=== PATIENT | female | born 1990 | race Caucasian/White ===

== ENCOUNTER 2017-01-11 14:40 | Outpatient (CLI) | payer MEDICAID ==
[2017-01-11 15:15] LABS: APPEARANCE,URINE SLIGHTLY-CLOUDY; BILIRUBIN,URINE NEGATIVE (NEGATIVE); GLUCOSE, URINE NEGATIVE (NEGATIVE); KETONES,URINE NEGATIVE (NEGATIVE); LEUKOCYTE ESTERASE,URINE MODERATE (NEGATIVE); NITRITE,URINE NEGATIVE (NEGATIVE); PROTEIN,URINE NEGATIVE (NEGATIVE); UROBILINOGEN,URINE NEGATIVE mg/dL (<2.0)
[2017-01-11 15:33] LABS: URINE BARBITURATES SCREEN NEGATIVE; URINE METHADONE SCREEN NEGATIVE; URINE OPIATES LOW NEGATIVE; URINE PHENCYCLIDINE SCREEN NEGATIVE
[2017-01-11 15:43] LABS: ALANINE AMINOTRANSFERASE 14 U/L (9-52); ALBUMIN 3.5 g/dL (3.5-5.0); ALKALINE PHOSPHATASE 90 U/L (38-126); ANION GAP 14 (5-19); ASPARTATE AMINO TRANSFERASE 16 U/L (14-36); BILIRUBIN,TOTAL 0.4 mg/dL (0.2-1.3); BLOOD UREA NITROGEN 8 mg/dL (7-20); CALCIUM 10.1 mg/dL (8.4-10.2); CARBON DIOXIDE 17 mmol/L (22-30); CHLORIDE 107 mmol/L (98-107); CREATININE RESULT 0.68 mg/dL (0.52-1.25); GLUCOSE 116 mg/dL (75-110); LDH 316 U/L (313-618); POTASSIUM 3.9 mmol/L (3.6-5.0); TOTAL PROTEIN 6.2 g/dL (6.3-8.2); URIC ACID 6.8 mg/dL (2.5-6.2)
[2017-01-11 15:44] LABS: ABSOLUTE EOSINOPHILS # (AUTO) 0.2 10^3/uL (0.0-0.6); ABSOLUTE LYMPHOCYTES (AUTO) 2.4 10^3/uL (0.5-4.7); ABSOLUTE MONOCYTES (AUTO) 0.8 10^3/uL (0.1-1.4); ABSOLUTE NEUT (AUTO) 12.3 10^3/uL (1.7-8.2); BASOPHILS % (AUTO) 0.2 % (0-2); EOSINOPHILS % (AUTO) 1.2 % (0-6); HEMOGLOBIN 9.8 g/dL (12.0-15.5); HGB HCT DIFFERENCE 1.4; LYMPHOCYTES % (AUTO) 15.1 % (13-45); MEAN CORPUSCULAR VOLUME 94 fl (80-97); MONOCYTES % (AUTO) 5.3 % (3-13); RED BLOOD COUNT 2.97 10^6/uL (3.72-5.28); RED CELL DISTRIBUTION WIDTH 14.3 % (11.5-14.0); SEGMENTED NEUTROPHILS % (AUTO) 78.2 % (42-78); WHITE BLOOD COUNT 15.7 10^3/uL (4.0-10.5)
--- NOTE | 2017-01-11 15:58 | Non Stress Test Report ---
Non Stress Test Datetime Report Generated by CPN: 01/11/2017 15:58 DEMOGRAPHIC EGA NST: 36.6 INDICATION Indication for Study: Gestational Hypertension MONITORING Monitor Explained: Monitor Explained; Test Explained; Patient Verbalized Understanding Time on Monitor: 01/11/2017 15:01 Time off Monitor: 01/11/2017 15:44 NST Duration: 43 NST INTERVENTIONS NST Interventions: PO Hydration; Reposition Patient Physician Notified NST: Dr. Arevalo BABY A: [id number] BABY A Movement : Present Contraction Frequency : 0 FHR Baseline : 140 Accelerations : 15X15 Decelerations : None Variability : Moderate 6-25bpm NST Review: Meets Criteria for Reactive NST NST Review and Verified By : Magaly Ardon RN NST Results: Reactive NST REPORT Report Trigger: Send Report
--- NOTE | 2017-01-11 16:00 | L&D Flow Sheet ---
LD Flowsheet Datetime Report Generated by CPN: 01/11/2017 16:00 Datetime: 01/11/2017 15:53 Provider Reviewed Strip: Yes (Sujatha Camp, RNC) Communication: Provider at Bedside (Sujatha Camp, RNC) Communication Comments: Dr Arevalo at bedside (Sujatha Camp, RNC) Datetime: 01/11/2017 15:45 Patient Care Comments: EFM off reactive NST noted (Sujatha Camp, RNC) Datetime: 01/11/2017 15:42 NBP Sys/Brenna/Mean (mmHg): 104 (QS system process) : 64 (QS system process) : 80 (QS system process) Pulse: 109 (QS system process) LaborFlag: Labor (QS system process) Datetime: 01/11/2017 15:27 NBP Sys/Brenna/Mean (mmHg): 110 (QS system process) : 67 (QS system process) : 83 (QS system process) Pulse: 116 (QS system process) LaborFlag: Labor (QS system process) Datetime: 01/11/2017 15:24 Pulse: 117 (QS system process) SpO2 (%): 96 (QS system process) LaborFlag: Labor (QS system process) Datetime: 01/11/2017 15:19 Pulse: 114 (QS system process) SpO2 (%): 97 (QS system process) LaborFlag: Labor (QS system process) Datetime: 01/11/2017 15:14 Pulse: 121 (QS system process) SpO2 (%): 96 (QS system process) Resting Tone (Palpate): Relaxed (Sujatha Camp, RNC) Pain Scale: 0 (Sujatha Camp, RNC) Pain Presence: None/Denies (Sujatha Camp, RNC) Pain Type: N/A (Sujatha Camp, RNC) Pain Assessment Comments: denies pain on arrival (Sujatha Camp, RNC) Membrane Status: Intact (Sujatha Camp, RNC) Vaginal Bleeding: None (Sujatha Camp, RNC) Level of Consciousness: Fully Conscious (Sujatha Camp, RNC) DTR's/Clonus: DTRs 2+; No Clonus (Sujatha Camp, RNC) Headache: Denies (Annotations: h/o frequent headaches throughout , c/o headache earlier today resolved without intervention) (Sujatha Ryan, RNC) Breath Sounds, Left: Clear and Equal (Sujatha Camp, RNC) Breath Sounds, Right: Clear and Equal (Sujatha Camp, RNC) Nausea/Vomiting: Hx of Nausea/Vomiting (Annotations: c/o nausea today, frequent nausea throughout ) (Sujatha Ryan, RNC) RUQ Epigastric Pain: Denies (Sujatha Davis, RNC) LaborFlag: Labor (QS system process) Datetime: 01/11/2017 15:12 NBP Sys/Brenna/Mean (mmHg): 129 (QS system process) : 75 (QS system process) : 93 (QS system process) Pulse: 123 (QS system process) LaborFlag: Labor (QS system process) Datetime: 01/11/2017 15:03 Patient Care Comments: RN at bedside adjusting monitor (Sujatha Davis, RNC) Datetime: 01/11/2017 15:02 IV/Blood Work: Labs Drawn (Sujatha Camp, RNC) I/O Interventions: Ice Chips Given; Clear Liquids Given (Sujatha Camp, RNC) Datetime: 01/11/2017 15:00 Patient Position/Activity: HOB Lowered; Left Lateral (Sujatha Camp, RNC) Instructional Method: Demo; Verbal; Written; Patient Instructed (Sujatha Camp, RNC) Plan of Care: Plan of Care Discussed; Gestational Hypertension/Preeclampsia/Eclampsia (Sujatha Arlington, RNC) Unit Routine: [place] to Room; Call Erazo; Bed; Monitoring (Sujatha Camp, RNC) Teaching Comments: POC reviewed for preeclampsia evaluation, estimated time required (Sujatha Camp, RNC) Datetime: 01/11/2017 14:00 Stage of : Labor (MALU Trivedi)
== END 2017-01-11 16:06 | disposition home or self-care (01) ==
LOC: LC 14:40
PROVIDERS: ATTEND Obstetrics & Gynecology
PROC: 4A1HXCZ Monitoring of Products of Conception, Cardiac Rate, External Approach (ICD-10-PCS; principal; 2017-01-11)
DX: O26.893 Other specified pregnancy related conditions, third trimester (principal); R51 Headache; R11.2 Nausea with vomiting, unspecified; Z3A.36 36 weeks gestation of pregnancy
CPT/HCPCS: 36415; 59025; 80053; 80307; 81001; 83615; 84550; 85025

== ENCOUNTER 2017-01-16 12:33 | Inpatient (IN) | payer MEDICAID ==
[~2017-01-16 12:33] MED LIST: LIDOCAINE 2% INJ-PF (20 MG/ML) 10 ML AMPUL ONE; METOCLOPRAMIDE HCL INJ/PF 10 MG/2 ML SDV ONE; ONDANSETRON HCL INJ/PF 4 MG/2 ML SDV ONE; PHENYLEPHRINE HCL INJ/PF 10 MG/1 ML SDV ONE
[2017-01-16] MEDS ORDERED: RINGERS SOLUTION,LACTATED 1,000 ML IV PRN (13:11)
[2017-01-16 13:34] LABS: APPEARANCE,URINE SLIGHTLY-CLOUDY; BILIRUBIN,URINE NEGATIVE (NEGATIVE); GLUCOSE, URINE NEGATIVE (NEGATIVE); KETONES,URINE NEGATIVE (NEGATIVE); LEUKOCYTE ESTERASE,URINE MODERATE (NEGATIVE); NITRITE,URINE NEGATIVE (NEGATIVE); PROTEIN,URINE NEGATIVE (NEGATIVE); URINE SPECIFIC GRAVITY 1.012; UROBILINOGEN,URINE NEGATIVE mg/dL (<2.0)
[2017-01-16 14:00] LABS: URINE BARBITURATES SCREEN NEGATIVE; URINE METHADONE SCREEN NEGATIVE; URINE OPIATES LOW NEGATIVE; URINE PHENCYCLIDINE SCREEN NEGATIVE
--- NOTE | 2017-01-16 14:01 | L&D Flow Sheet ---
LD Flowsheet Datetime Report Generated by CPN: 01/16/2017 14:00 Datetime: 01/16/2017 13:55 Dilatation (cm): 4.0 (Michael Zoraida, RN) Effacement (%): 80 (Michael Zoraida, RN) Exam by: Dr Person (Michael Zoraida, RN) Vaginal Exam Comments: ballottable (Michael Zoraida, RN) Datetime: 01/16/2017 13:52 NBP Sys/Brenna/Mean (mmHg): 134 (QS system process) : 90 (QS system process) : 105 (QS system process) Pulse: 115 (QS system process) Monitor Interventions for UA: [place] Adjusted (Michael Conway RN) Monitor Interventions for FHR: Ultrasound Adjusted (Michael Conway RN) Communication Comments: Pt BP sitting up (Michael Conway RN) LaborFlag: Labor (QS system process) Datetime: 01/16/2017 13:51 Communication Comments: Dr Person at bedside to assess pt (Michael Conway RN) Datetime: 01/16/2017 13:46 Temperature (F): 98.9 (Michael Conway RN) Temperature (C): 37.2 (QS system process) IV/Blood Work: IV Started; IV Bolus Started; Labs Drawn with IV Start (Michael Conway RN) Patient Care Comments: 18G L Hand pt tolerated well, site wnl, good blood return (Michael Conway RN) LaborFlag: Labor (QS system process) Datetime: 01/16/2017 13:36 NBP Sys/Brenna/Mean (mmHg): 130 (QS system process) : 82 (QS system process) : 100 (QS system process) Pulse: 118 (QS system process) LaborFlag: Labor (QS system process) Datetime: 01/16/2017 13:35 NBP Sys/Brenna/Mean (mmHg): 122 (QS system process) : 11 (QS system process) : 91 (QS system process) Pulse: 118 (QS system process) LaborFlag: Labor (QS system process) Datetime: 01/16/2017 13:30 Pain Scale: 0 (Stacie Ardon RN) Pain Presence: None/Denies (Stacie Ardon RN) Vaginal Bleeding: None (Stacie Ardon RN) Level of Consciousness: Fully Conscious (Stacie Ardon RN) DTR's/Clonus: DTRs 2+; No Clonus (Stacie Ardon RN) Headache: Generalized (Stacie Ardon RN) Breath Sounds, Left: Clear and Equal (Stacie Ardon RN) Breath Sounds, Right: Clear and Equal (Stacie Ardon RN) Nausea/Vomiting: Denies (Stacie Ardon RN) RUQ Epigastric Pain: Denies (Stacie Ardon RN) Instructional Method: Demo; Verbal; Patient Instructed; Family/Support Person Instructed; Verbalized Understanding (Stacie Ardno RN) Plan of Care: Plan of Care Discussed; C/S Delivery (Stacie Ardon RN) Unit Routine: [place] to Room; Call Erazo; Bed; Monitoring (Stacie Ardon RN) LaborFlag: Labor (QS system process) Datetime: 01/16/2017 13:21 NBP Sys/Brenna/Mean (mmHg): 122 (QS system process) : 82 (QS system process) : 97 (QS system process) Pulse: 116 (QS system process) LaborFlag: Labor (QS system process) Datetime: 01/16/2017 13:05 NBP Sys/Brenna/Mean (mmHg): 131 (QS system process) : 79 (QS system process) : 98 (QS system process) Pulse: 129 (QS system process) LaborFlag: Labor (QS system process)
[2017-01-16 14:07] LABS: ABSOLUTE EOSINOPHILS # (AUTO) 0.1 10^3/uL (0.0-0.6); ABSOLUTE LYMPHOCYTES (AUTO) 2.2 10^3/uL (0.5-4.7); ABSOLUTE MONOCYTES (AUTO) 0.8 10^3/uL (0.1-1.4); ABSOLUTE NEUT (AUTO) 11.4 10^3/uL (1.7-8.2); BASOPHILS % (AUTO) 0.3 % (0-2); EOSINOPHILS % (AUTO) 0.8 % (0-6); HEMATOCRIT 28.7 % (36.0-47.0); HGB HCT DIFFERENCE 1.3; LYMPHOCYTES % (AUTO) 15.1 % (13-45); MEAN CORPUSCULAR HEMOGLOBIN 32.8 pg (27.0-33.4); MEAN CORPUSCULAR HGB CONC 34.7 g/dL (32.0-36.0); MEAN CORPUSCULAR VOLUME 95 fl (80-97); MONOCYTES % (AUTO) 5.4 % (3-13); RED BLOOD COUNT 3.04 10^6/uL (3.72-5.28); RED CELL DISTRIBUTION WIDTH 14.5 % (11.5-14.0); SEGMENTED NEUTROPHILS % (AUTO) 78.4 % (42-78); WHITE BLOOD COUNT 14.6 10^3/uL (4.0-10.5)
[2017-01-16 14:27] LABS: ALANINE AMINOTRANSFERASE 20 U/L (9-52); ALBUMIN 3.2 g/dL (3.5-5.0); ALKALINE PHOSPHATASE 90 U/L (38-126); ANION GAP 13 (5-19); ASPARTATE AMINO TRANSFERASE 16 U/L (14-36); BILIRUBIN,TOTAL 0.5 mg/dL (0.2-1.3); BLOOD UREA NITROGEN 9 mg/dL (7-20); CALCIUM 10.2 mg/dL (8.4-10.2); CARBON DIOXIDE 17 mmol/L (22-30); CHLORIDE 108 mmol/L (98-107); CREATININE RESULT 0.71 mg/dL (0.52-1.25); GLUCOSE 93 mg/dL (75-110); LDH 359 U/L (313-618); POTASSIUM 4.1 mmol/L (3.6-5.0); SODIUM 137.7 mmol/L (137-145); TOTAL PROTEIN 6.6 g/dL (6.3-8.2); URIC ACID 6.6 mg/dL (2.5-6.2)
[2017-01-16] MEDS ORDERED: BUPIVACAINE HCL 0.25 % INJ/PF (2.5 MG/1 ML) 30 ML VIAL ONE (14:50)
[2017-01-16] MEDS ORDERED: EPHEDRINE SULFATE INJ 50 MG/1 ML AMPULE ONE ×2 (14:50→15:01)
[2017-01-16] MEDS ORDERED: FENTANYL/BUPIVACAINE/NS/PF 200 MCG/100 ML RTUINJ EPI ONE (14:50)
[2017-01-16] MEDS ORDERED: LIDOCAINE 2% INJ-PF (20 MG/ML) 10 ML AMPUL ONE ×3 (14:53→16:54)
[2017-01-16] MEDS ORDERED: CEFAZOLIN INJ 1 GM VIAL ONE (14:56)
[2017-01-16] MEDS ORDERED: CEFAZOLIN 2 GM/D5W RTU 2 GM/50 ML RTUPB IV ONE ×2 (14:57→16:59)
[2017-01-16] MEDS ORDERED: MIDAZOLAM 2 MG/2 ML INJ ONE ×2 (15:01→18:27)
[2017-01-16] MEDS ORDERED: OXYTOCIN 10 UNIT/ML VIAL ONE ×2 (15:01→17:18)
[2017-01-16] MEDS ORDERED: PROPOFOL INJ 200 MG/20 ML VIAL IV ONE ×2 (15:01→18:18)
[2017-01-16] MEDS ORDERED: FENTANYL CITRATE INJ/PF 100 MCG/2 ML AMPUL ONE ×2 (15:01→19:21)
[2017-01-16] MEDS ORDERED: KETAMINE HCL INJ 500 MG/10 ML VIAL ONE (15:10)
--- NOTE | 2017-01-16 16:00 | L&D Flow Sheet ---
LD Flowsheet Datetime Report Generated by CPN: 01/16/2017 16:00 Datetime: 01/16/2017 15:54 Communication: RN at Bedside (Staciesimone Ardon, RN) Communication Comments: patient states she is still feeling okay. No shortness of breath, nausea, or dizziness (Stacie Navarrolatt, RN) Datetime: 01/16/2017 15:50 NBP Sys/Brenna/Mean (mmHg): 132 (QS system process) : 64 (QS system process) : 92 (QS system process) Pulse: 98 (QS system process) LaborFlag: Labor (QS system process) Datetime: 01/16/2017 15:41 NBP Sys/Brenna/Mean (mmHg): 130 (QS system process) : 61 (QS system process) : 87 (QS system process) Pulse: 112 (QS system process) LaborFlag: Labor (QS system process) Datetime: 01/16/2017 15:30 Monitor Mode: External (Stacie Mahoneytt, RN) Frequency (min): 0 (Stacieendy Mahoneytt, RN) Resting Tone (Palpate): Relaxed (Stacie Ardon, RN) Monitor Mode: External US (Stacie Ardon, RN) FHR Baseline Rate : 140 (Stacie Mahoneytt, RN) Variability: Moderate 6-25 bpm (Stacie Melanielatt, RN) Accelerations: 15X15 (Stacie Melanielatt, RN) Decelerations: None (Stacie Mahoneytt, RN) Datetime: 01/16/2017 15:28 NBP Sys/Brenna/Mean (mmHg): 135 (QS system process) : 65 (QS system process) : 94 (QS system process) Pulse: 109 (QS system process) LaborFlag: Labor (QS system process) Datetime: 01/16/2017 15:26 Monitor Interventions for UA: [place] Adjusted (Stacie Marlatt, RN) Datetime: 01/16/2017 15:25 NBP Sys/Brenna/Mean (mmHg): 149 (QS system process) : 66 (QS system process) : 95 (QS system process) Pulse: 114 (QS system process) LaborFlag: Labor (QS system process) Datetime: 01/16/2017 15:24 NBP Sys/Brenna/Mean (mmHg): 145 (QS system process) : 68 (QS system process) : 98 (QS system process) Pulse: 109 (QS system process) LaborFlag: Labor (QS system process) Datetime: 01/16/2017 15:23 NBP Sys/Brenna/Mean (mmHg): 147 (QS system process) : 81 (QS system process) : 107 (QS system process) Pulse: 107 (QS system process) LaborFlag: Labor (QS system process) Datetime: 01/16/2017 15:22 NBP Sys/Brenna/Mean (mmHg): 136 (QS system process) : 77 (QS system process) : 101 (QS system process) Pulse: 116 (QS system process) LaborFlag: Labor (QS system process) Datetime: 01/16/2017 15:21 Pulse: 97 (QS system process) SpO2 (%): 98 (QS system process) Actions for Decelerations: Oxygen Applied (Stacie Ardon RN) Oxygen Amount : 10 (Stacie Ardon RN) LaborFlag: Labor (QS system process) Datetime: 01/16/2017 15:20 NBP Sys/Brenna/Mean (mmHg): 130 (QS system process) : 77 (QS system process) : 97 (QS system process) Pulse: 84 (QS system process) LaborFlag: Labor (QS system process) Datetime: 01/16/2017 15:19 NBP Sys/Brenna/Mean (mmHg): 82 (QS system process) : 51 (QS system process) : 63 (QS system process) Pulse: 68 (QS system process) Medication Comments: 20mg Ephedrine given IV push per order from [facility] [employer] (Stacie Ardon RN) LaborFlag: Labor (QS system process) Datetime: 01/16/2017 15:18 NBP Sys/Brenna/Mean (mmHg): 91 (QS system process) : 47 (QS system process) : 64 (QS system process) Pulse: 80 (QS system process) LaborFlag: Labor (QS system process) Datetime: 01/16/2017 15:16 Patient Care Comments: c/section on hold, emergency c/section needed on another patient (Stacie Ardon, RN) Datetime: 01/16/2017 15:13 NBP Sys/Brenna/Mean (mmHg): 114 (QS system process) : 57 (QS system process) : 80 (QS system process) Pulse: 123 (QS system process) LaborFlag: Labor (QS system process) Datetime: 01/16/2017 15:12 NBP Sys/Brenna/Mean (mmHg): 128 (QS system process) NBP Sys/Brenna/Mean (mmHg): 130 (QS system process) : 64 (QS system process) : 63 (QS system process) : 88 (QS system process) : 90 (QS system process) Pulse: 120 (QS system process) LaborFlag: Labor (QS system process) Datetime: 01/16/2017 15:10 NBP Sys/Brenna/Mean (mmHg): 143 (QS system process) : 83 (QS system process) : 99 (QS system process) Pulse: 122 (QS system process) LaborFlag: Labor (QS system process) Datetime: 01/16/2017 15:08 NBP Sys/Brenna/Mean (mmHg): 133 (QS system process) : 67 (QS system process) : 92 (QS system process) Pulse: 113 (QS system process) LaborFlag: Labor (QS system process) Datetime: 01/16/2017 15:06 Pulse: 125 (QS system process) SpO2 (%): 97 (QS system process) LaborFlag: Labor (QS system process) Datetime: 01/16/2017 15:05 NBP Sys/Brenna/Mean (mmHg): 140 (QS system process) : 87 (QS system process) : 107 (QS system process) Pulse: 118 (QS system process) LaborFlag: Labor (QS system process) Datetime: 01/16/2017 15:04 Epidural Procedure: Cath Placed (Stacie Marlatt, RN) Datetime: 01/16/2017 15:03 NBP Sys/Brenna/Mean (mmHg): 146 (QS system process) : 92 (QS system process) : 114 (QS system process) Pulse: 116 (QS system process) Epidural Procedure: Test Dose (Stacie Ardon RN) LaborFlag: Labor (QS system process) Datetime: 01/16/2017 15:02 Pulse: 115 (QS system process) SpO2 (%): 93 (QS system process) LaborFlag: Labor (QS system process) Datetime: 01/16/2017 15:01 NBP Sys/Brenna/Mean (mmHg): 166 (QS system process) : 95 (QS system process) : 124 (QS system process) Pulse: 130 (QS system process) Pulse: 126 (QS system process) SpO2 (%): 97 (QS system process) Antibiotics: Ancef IV (Gm) @ 3 (Stacie Ardon RN) LaborFlag: Labor (QS system process) Datetime: 01/16/2017 14:57 Anesthesia Comments: Dr. Salmeron at bedside to place epidural prior to c/section (Stacie Melaniepolo, RN) Datetime: 01/16/2017 14:56 Pulse: 205 (QS system process) SpO2 (%): 96 (QS system process) LaborFlag: Labor (QS system process) Datetime: 01/16/2017 14:50 NBP Sys/Brenna/Mean (mmHg): 127 (QS system process) : 99 (QS system process) : 109 (QS system process) Pulse: 107 (QS system process) LaborFlag: Labor (QS system process) Datetime: 01/16/2017 14:35 NBP Sys/Brenna/Mean (mmHg): 127 (QS system process) : 93 (QS system process) : 105 (QS system process) Pulse: 112 (QS system process) LaborFlag: Labor (QS system process) Datetime: 01/16/2017 14:30 Monitor Mode: External (Stacie Mahoneytt, RN) Frequency (min): rare (Stacie Ardon, RN) Quality: Mild (Stacie Melanielatt, RN) Duration (sec): 60-80 (Stacie Melanielatt, RN) Resting Tone (Palpate): Relaxed (Stacie Melanielatt, RN) Monitor Mode: External US (Stacie Ardon, RN) FHR Baseline Rate : 145 (Stacie Melanielatt, RN) Variability: Moderate 6-25 bpm (Stacie Melanielatt, RN) Accelerations: 15X15 (Stacie Marlatt, RN) Decelerations: None (Stacie Melanielatt, RN) Datetime: 01/16/2017 14:27 Monitor Interventions for FHR: Ultrasound Adjusted (Stacie Marlatt, RN) Datetime: 01/16/2017 14:20 NBP Sys/Brenna/Mean (mmHg): 130 (QS system process) : 94 (QS system process) : 109 (QS system process) Pulse: 117 (QS system process) LaborFlag: Labor (QS system process) Datetime: 01/16/2017 14:06 NBP Sys/Brenna/Mean (mmHg): 136 (QS system process) : 81 (QS system process) : 104 (QS system process) Pulse: 106 (QS system process) LaborFlag: Labor (QS system process) Datetime: 01/16/2017 14:00 Monitor Mode: External (Stacie Ardon RN) Frequency (min): rare (Stacie Ardon RN) Quality: Mild (Stacie Ardon RN) Duration (sec): 70-90 (Stacie Ardon RN) Resting Tone (Palpate): Relaxed (Stacie Ardon RN) Monitor Mode: External US (Stacie Ardon RN) FHR Baseline Rate : 150 (Stacie Ardon RN) Variability: Moderate 6-25 bpm (Stacie Ardon RN) Accelerations: 15X15 (Stacie Ardon RN) Decelerations: Variable (Stacie Ardon RN)
--- NOTE | 2017-01-16 18:00 | L&D Flow Sheet ---
LD Flowsheet Datetime Report Generated by CPN: 01/16/2017 18:00 Datetime: 01/16/2017 17:24 NBP Sys/Brenna/Mean (mmHg): 134 (QS system process) : 65 (QS system process) : 93 (QS system process) Pulse: 106 (QS system process) LaborFlag: Labor (QS system process) Datetime: 01/16/2017 17:18 NBP Sys/Brenna/Mean (mmHg): 133 (QS system process) : 67 (QS system process) : 94 (QS system process) Pulse: 106 (QS system process) LaborFlag: Labor (QS system process) Datetime: 01/16/2017 17:14 NBP Sys/Brenna/Mean (mmHg): 128 (QS system process) : 74 (QS system process) : 96 (QS system process) Pulse: 100 (QS system process) LaborFlag: Labor (QS system process) Datetime: 01/16/2017 17:13 Epidural Procedure Other: Single Dose (Ana Paula Bellavance, RNC) Anesthesia Comments: epidural dosed for c/s (Ana Paula Bellavance, RNC) Datetime: 01/16/2017 17:10 NBP Sys/Brenna/Mean (mmHg): 123 (QS system process) : 68 (QS system process) : 88 (QS system process) Pulse: 101 (QS system process) LaborFlag: Labor (QS system process) Datetime: 01/16/2017 17:02 NBP Sys/Brenna/Mean (mmHg): 116 (QS system process) : 62 (QS system process) : 81 (QS system process) Pulse: 111 (QS system process) LaborFlag: Labor (QS system process) Datetime: 01/16/2017 16:51 NBP Sys/Brenna/Mean (mmHg): 115 (QS system process) : 72 (QS system process) : 89 (QS system process) Pulse: 106 (QS system process) LaborFlag: Labor (QS system process) Datetime: 01/16/2017 16:40 NBP Sys/Brenna/Mean (mmHg): 125 (QS system process) : 81 (QS system process) : 98 (QS system process) Pulse: 106 (QS system process) LaborFlag: Labor (QS system process) Datetime: 01/16/2017 16:30 NBP Sys/Brenna/Mean (mmHg): 113 (QS system process) : 77 (QS system process) : 90 (QS system process) Pulse: 106 (QS system process) Monitor Mode: External (Stacie Ardon RN) Frequency (min): 0 (Stacie Ardon RN) Resting Tone (Palpate): Relaxed (Stacie Ardon RN) Monitor Mode: External US (Stacie Ardon RN) FHR Baseline Rate : 140 (Stacie Ardon RN) Variability: Moderate 6-25 bpm (Stacie Ardon, RN) Accelerations: 15X15 (Stacie Ardon, RN) Decelerations: None (Stacie Ardon, RN) LaborFlag: Labor (QS system process) Datetime: 01/16/2017 16:20 NBP Sys/Brenna/Mean (mmHg): 131 (QS system process) : 74 (QS system process) : 97 (QS system process) Pulse: 105 (QS system process) LaborFlag: Labor (QS system process) Datetime: 01/16/2017 16:11 NBP Sys/Brenna/Mean (mmHg): 135 (QS system process) : 82 (QS system process) : 103 (QS system process) Pulse: 111 (QS system process) LaborFlag: Labor (QS system process) Datetime: 01/16/2017 16:01 NBP Sys/Brenna/Mean (mmHg): 142 (QS system process) : 80 (QS system process) : 103 (QS system process) Pulse: 111 (QS system process) LaborFlag: Labor (QS system process) Datetime: 01/16/2017 16:00 Monitor Mode: External (Stacie Ardon RN) Frequency (min): 0 (Stacie Ardon RN) Resting Tone (Palpate): Relaxed (Stacie Ardon RN) Monitor Mode: External US (Stacie Ardon RN) FHR Baseline Rate : 140 (Stacie Ardon RN) Variability: Moderate 6-25 bpm (Stacie Ardon RN) Accelerations: 15X15 (Stacie Ardon RN) Decelerations: None (Stacie Ardon RN)
[2017-01-16] MEDS ORDERED: MORPHINE SULFATE 10 MG/ML INJ ONE (18:51)
[2017-01-16] MEDS ORDERED: ACETAMINOPHEN 100 ML IV ONE (19:07)
[2017-01-16] MEDS ORDERED: OXYCODONE-ACETAMINOPHEN 5-325 MG TABLET PO PRN (19:09)
[2017-01-16] MEDS ORDERED: OXYTOCIN/NORMAL SALINE 1,000 ML IV PRN (19:09)
[2017-01-16] MEDS ORDERED: DIPH/PERTUSS(ACELL)/TETANUS VAC/PF 0.5 ML SYR (>=10YO) IM PRN (19:09)
[2017-01-16] MEDS ORDERED: MEASLES,MUMPS&RUBELLA VACC/PF 0.5 ML VIAL SUBCUT PRN (19:09)
[2017-01-16] MEDS ORDERED: PROMETHAZINE HCL INJ 25 MG/1 ML VIAL IV PRN (19:09)
[2017-01-16] MEDS ORDERED: ACETAMINOPHEN 325 MG TABLET PO PRN (19:09)
[2017-01-16] MEDS ORDERED: MISOPROSTOL 0.2 MG TABLET ONE (19:52)
--- NOTE | 2017-01-16 20:59 | Admission Physical ---
Datetime Report Generated by CPN: 01/16/2017 20:58 CURRENT ADMISSION Chief Complaint: Signs/Symptoms Gestational HTN Indication for Induction: Gest. HTN/PreEclampsia/Eclampsia Admit Plan: Admit to Unit; Initiate Section Protocol ALLERGIES Medication Allergies: Yes Medication Allergies: buspirone HCl/NV (01/16/2017); codeine/NV (01/16/2017); latex/NV (01/16/2017) Latex: Latex Allergies Food Allergies: none Environmental Allergies: none OBSTETRICAL HISTORY EDC: 02/02/2017 00:00 : 4 Para: 3 Term: 3 : 0 SAB: 0 IAB: 0 Ectopic: 0 Livin Cesareans: 1 VBACs: 0 Multiple Births: 0 Gestational Diabetes: Yes Rh Sensitization: No Incompetent Cervix: No RYAN: No Infertility: No ART Treatment: No Uterine Anomaly: No IUGR: Yes Hx Previous C/S: Yes Macrosomia: No Hx Loss/Stillborn: No PIH: No Hx : No Placenta Previa/Abruption: No Depression/PP Depression: Yes PTL/PROM: No Post Hemorrhage: Yes Current Procedures: Ultrasound; NST; Doppler Flow Study Obstetrical History Comments: G2- baby given up for adoption, baby with iugr G3- c/s for breech, oligo. PP hem. did not require blood transfusion G1 and G2 GDM maternal obesity close spaced SEE RECORDS Alcohol: No Marijuana : No Cocaine: No Other Illicit Drugs: No Cigarettes: Former Smoker. [id number] MEDICAL HISTORY Diabetes: No Blood Transfusion: No Pulmonary Disease (Asthma, TB): No Breast Disease: No Hypertension: No Pin Machine Tender Surgery: No Heart Disease: No Hosp/Surgery: Yes Autoimmune Disorder: No Anesthetic Complications: No Kidney Disease: No Abnormal Pap Smear: Yes Neuro/Epilepsy: No Psychiatric Disorders: No Other Medical Diseases: Yes Hepatitis/Liver Disease: No Significant Family History: No Varicosities/Phlebitis: No Trauma/Violence : No Thyroid Dysfunction: No Medical History Comments: Childbirth 2010, 2011 and 2014. Cholecystectomy 2015, h/o abnormal pap, h/o depression no meds currently INFECTIOUS HISTORY Gonorrhea: No Genital Herpes: No Chlamydia: No Tuberculosis: No Syphilis: No Hepatitis: No HIV/AIDS Exposure: No Rash or Viral Illness: No HPV: No PHYSICAL EXAM General: Normal HEENT: Normal Neurologic: Normal Thyroid: Normal Heart: Normal Lungs: Normal Breast: Deferred Back: Normal Abdomen: Normal Genitourinary Exam: Normal Extremities: Normal DTRs: Normal Pelvic Type: Adequate Physical Exam Comments: pelvis proven to 9#3oz Vital Signs: Reviewed Details Vital Signs: elevated BP in office at [facility] and last week also VAGINAL EXAM Dilatation: 4 Effacement: 80 Station: -2 Contraction Comments: rare MEMBRANES Membranes: Intact FETUS A EGA: 37.4 Monitoring: External US FHR- Baseline: 140 Variability: Moderate 6-25bpm Accelerations: 15X15 Decelerations: None FHR Category: Category I Estimated Weight (gm): 3375 Presentation: Vertex Admit Comment: 26yo at 37+4ega (H/o x 2 then C/S 09/2015 for Breech and unable to vert due to oligo) presents from office due to DOOLEY and elevated BPs. BP in office last week 151/96 and then BP in office at [facility] last week elevated and elevated again today 141/100 and repeat 142/103. Pt denies h/o CHTN and denies complications during . Reports h/o GDM in G2 and G3 but 1 hr GTT normal today. Advised pt of cervical dilation and offered transfer to [facility] but pt declines and desires to proceed with Repeat C/S. She desires Paragard IUD for contraception pp. She reports that she is having a DOOLEY but denies RUQ pain/blurry vision. Uric Acid and Cr elevated. LFTs and platlets normal. Will recheck Labs in 6 hours pp. R/B/A reviewed and will proceed with Repeat C/S. Anesthesia aware. 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 PLANS FOR LABOR AND DELIVERY Labor and Delivery: None Pain Management: Epidural Other Pain Management Plans: Repeat c/s 01/26/17 Feeding Preference: Both Benefit of Breast Feed Discussed: Yes Circumcision: N/A INFORMED CONSENT Informed Consent Obtained: Section Delivery; Risks, Benefits and Alternatives Discussed Signature: with User ID: [email or web address]
--- NOTE | 2017-01-16 21:33 | Delivery Summary ---
Del Sum A-C Datetime Report Generated by CPN: 01/16/2017 21:33 ADMISSION DATA Chief Complaint: Signs/Symptoms Gestational HTN Indication for Induction: Gest. HTN/PreEclampsia/Eclampsia Admission Impression: Term, Intrauterine ; No Active Labor; Intact Membranes; Repeat Section Admit Provider Comments: 26yo at 37+4ega (H/o x 2 then C/S 09/2015 for Breech and unable to vert due to oligo) presents from office due to DOOLEY and elevated BPs. BP in office last week 151/96 and then BP in office at [facility] last week elevated and elevated again today 141/100 and repeat 142/103. Pt denies h/o CHTN and denies complications during . Reports h/o GDM in G2 and G3 but 1 hr GTT normal today. Advised pt of cervical dilation and offered [facility] but pt declines and desires to proceed with Repeat C/S. She desires Paragard IUD for contraception pp. She reports that she is having a DOOLEY but denies RUQ pain/blurry vision. Uric Acid and Cr elevated. LFTs and platlets normal. Will recheck Labs in 6 hours pp. R/B/A reviewed and will proceed with Repeat C/S. Anesthesia aware. expressive art therapist to OR. Ancef 3g urologic surgeon. DELIVERY PERSONNEL Delivery Doctor:: Deisi Person MD Anesthesiologist:: Aaron Salmeron MD SOCIAL MEDIA ANALYST:: Cali Phelps CRNA Labor and Delivery Nurse:: Stacie Ardon RN Neonatal Nurse Practitioner:: KIRK Gomez Nursery Nurse:: Niki Chopra Farm Management Supervisor/HIGHWAY TRUCK DRIVER: ST Mahesh Farm Management Supervisor/HIGHWAY TRUCK DRIVER: Grecia Greene, PRODUCTION GEAR CUTTER MATERNAL INFORMATION Delivery Anesthesia: Spinal Estimated Blood Loss (ml): 500 Maternal Complications: None LABOR SUMMARY EDC: 02/02/2017 00:00 No. Babies in Womb: 1 LABOR INFORMATION Reason for Induction: Not Applicable Group B Beta Strep: neg MEMBRANES Membranes Rupture Method: Artificial Rupture of Membranes: 01/16/2017 17:57 Length of Rupture (hr): 0.05 Amniotic Fluid Color: Clear STAGES OF LABOR Stage 3 hr: 0 Stage 3 min: 2 CSECTION DELIVERY Primary Indication: Other Other Primary Indication: repeat c/section Other Secondary Indication: GHTN CSection Urgency: Non-Scheduled CSection Incidence: Repeat Labor: No Labor Elective: Nonelective CSection Incision: Lower Uterine Transverse BABY A INFORMATION Infant Delivery Date/Time: 01/16/2017 18:00 Method of Delivery: Born in Route : No : N/A Forceps: N/A Vacuum Extraction: N/A Shoulder Dystocia : No PRESENTATION/POSITION BABY A Presentation: Cephalic Cephalic Presentation: Vertex Breech Presentation: N/A PLACENTA INFORMATION BABY A Placenta Delivery Time : 01/16/2017 18:02 Placenta Method of Delivery: Manual Removal Placenta Status: Delivered SCORES BABY A Heart Rate 1 min: >100 bpm Resp Effort 1 min: Good Cry Reflex Irritability 1 min: Cough or Sneeze or Pulls Away Muscle Tone 1 min: Active Motion Color 1 min: Blue/Pale Resuscitation Effort 1 min: Tactile Stimulation SCORE 1 MIN: 8 Heart Rate 5 min: >100 bpm Resp Effort 5 min: Good Cry Reflex Irritability 5 min: Cough or Sneeze or Pulls Away Muscle Tone 5 min: Active Motion Color 5 min: Body [place], Extremities Blue Resuscitation Effort 5 min: Tactile Stimulation SCORE 5 MIN: 9 INFORMATION BABY A Gestational Age at Delivery: 37.4 Gestational Status: Early Term- 37- 38.6 Weeks Outcome : Liveborn Condition : Stable Infant Sex: Female IDENTIFICATION BABY A Infant Verification Date/Time: 01/16/2017 18:10 ID Band Number: [id number] Mother's Name Verified: Yes RN Verifying : Magaly Ardon RN Additional Verifying Personnel: Brandi VILLARREALA WEIGHT/LENGTH BABY A Infant Birthweight (gm): 3200 Weight (lb): 7 Weight (oz): 1 Length (in): 19.25 Length (cm): 48.90 CORD INFORMATION BABY A No. Cord Vessels: 3 Nuchal Cord : N/A Cord Blood Taken: Yes-For Eval (Mom's Blood Type - or O+) Suction: None ASSESSMENT BABY A Complications: None Physical Findings at Delivery: Within Normal Limits Infant Respirations: Appears Normal Skin to Skin: Yes Business Mgr/ALS Called : No Care By: Magaly Chopra RN Transferred To: Nursery
[2017-01-16] MEDS ORDERED: MISOPROSTOL 0.2 MG TABLET PR ONE (21:45)
[2017-01-16] MEDS: KETOROLAC TROMETHAMINE INJ/PF 30 MG/1 ML SDV IV SCH (22:03)
[2017-01-17] MEDS ORDERED: HYDROMORPHONE HCL INJ/PF 2 MG/ML AMPULE IV PRN (00:27)
[2017-01-17] MEDS: KETOROLAC TROMETHAMINE INJ/PF 30 MG/1 ML SDV IV SCH ×2 (05:58→13:05)
--- NOTE | 2017-01-17 07:01 | L&D Flow Sheet ---
LD Flowsheet Datetime Report Generated by CPN: 01/17/2017 07:00 Datetime: 01/16/2017 20:50 Pulse: 109 (QS system process) SpO2 (%): 100 (QS system process) Datetime: 01/16/2017 20:49 Temperature (F): 98.3 (Stacie Marlatt, RN) Temperature (C): 36.8 (QS system process) Datetime: 01/16/2017 20:48 Pulse: 109 (QS system process) SpO2 (%): 94 (QS system process) Datetime: 01/16/2017 20:45 Pulse: 101 (QS system process) SpO2 (%): 98 (QS system process) Pain Scale: 3 (Stacie Ardon, RN) Pain Presence: Intermittent (Stacie Ardon, RN) Pain Type: Cramping (Stacie Ardon, RN) Pain Location: Abdomen (Stacie Ardon, RN) Pain Goal: 1 (Stacie Marlatt, RN) Datetime: 01/16/2017 20:40 Pulse: 101 (QS system process) SpO2 (%): 98 (QS system process) Datetime: 01/16/2017 20:39 NBP Sys/Brenna/Mean (mmHg): 135 (QS system process) : 72 (QS system process) : 97 (QS system process) Pulse: 94 (QS system process) Datetime: 01/16/2017 20:35 Pulse: 98 (QS system process) SpO2 (%): 99 (QS system process) Datetime: 01/16/2017 20:30 Pulse: 105 (QS system process) SpO2 (%): 100 (QS system process) Pain Scale: 3 (Stacie Melaniepolo, RN) Pain Presence: Intermittent (Stacie Ardon RN) Pain Type: Cramping (Stacie Ardon, RN) Pain Location: Abdomen (Stacie Ardon, RN) Pain Goal: 1 (Stacie Ardon RN) Datetime: 01/16/2017 20:25 Pulse: 107 (QS system process) SpO2 (%): 100 (QS system process) Datetime: 01/16/2017 20:20 NBP Sys/Brenna/Mean (mmHg): 147 (QS system process) : 78 (QS system process) : 102 (QS system process) Pulse: 106 (QS system process) Pulse: 105 (QS system process) SpO2 (%): 98 (QS system process) Datetime: 01/16/2017 20:15 Pulse: 106 (QS system process) SpO2 (%): 99 (QS system process) Pain Scale: 3 (Staciesimone Ardon, RN) Pain Presence: Intermittent (Stacie Ardon, RN) Pain Type: Cramping (Stacie Ardon, RN) Pain Location: Abdomen (Stacie Reva, RN) Pain Goal: 1 (Stacie Ardon, RN) Datetime: 01/16/2017 20:10 Pulse: 110 (QS system process) SpO2 (%): 100 (QS system process) Datetime: 01/16/2017 20:05 Pulse: 109 (QS system process) SpO2 (%): 100 (QS system process) Pain Scale: 3 (Stacie Maruarley, RN) Pain Presence: Intermittent (Stacie Marlaarley, RN) Pain Type: Cramping (Stacie Ardon, RN) Pain Location: Abdomen (Stacie Ardon, RN) Pain Goal: 1 (Stacie Ardon, RN) Datetime: 01/16/2017 20:00 Pulse: 112 (QS system process) SpO2 (%): 100 (QS system process) Datetime: 01/16/2017 19:55 Pulse: 93 (QS system process) SpO2 (%): 99 (QS system process) Datetime: 01/16/2017 19:50 Pulse: 104 (QS system process) SpO2 (%): 99 (QS system process) Datetime: 01/16/2017 19:45 Pulse: 108 (QS system process) SpO2 (%): 99 (QS system process) Pain Scale: 3 (Stacie Ardon RN) Pain Presence: Intermittent (Stacie Ardon RN) Pain Type: Cramping (Stacie Ardon RN) Pain Location: Abdomen (Stacie Ardon RN) Pain Goal: 1 (Stacie Ardon RN) Pain Relief Measures: Comfort Measures (Stacie Ardon RN) Datetime: 01/16/2017 19:40 Pulse: 110 (QS system process) SpO2 (%): 98 (QS system process) Datetime: 01/16/2017 19:39 NBP Sys/Brenna/Mean (mmHg): 138 (QS system process) : 78 (QS system process) : 102 (QS system process) Pulse: 101 (QS system process) Datetime: 01/16/2017 19:35 Pulse: 106 (QS system process) SpO2 (%): 99 (QS system process) Datetime: 01/16/2017 19:34 NBP Sys/Brenna/Mean (mmHg): 134 (QS system process) : 76 (QS system process) : 98 (QS system process) Pulse: 107 (QS system process) Datetime: 01/16/2017 19:30 Pulse: 104 (QS system process) Respirations: 18 (Shanika Dillon, RN) SpO2 (%): 97 (QS system process) Pain Scale: 3 (Shanika Youl, RN) Pain Presence: Constant (Shanika Youl, RN) Pain Type: Burning (Shanika Youl, RN) Pain Location: Abdomen (Shanika Carranza RN) Pain Assessment Comments: Pt reporting pain relief (Shanika Dillon, RN) Datetime: 01/16/2017 19:29 NBP Sys/Brenna/Mean (mmHg): 138 (QS system process) : 68 (QS system process) : 97 (QS system process) Pulse: 184 (QS system process) Datetime: 01/16/2017 19:25 Pulse: 101 (QS system process) SpO2 (%): 99 (QS system process) Datetime: 01/16/2017 19:24 NBP Sys/Brenna/Mean (mmHg): 131 (QS system process) : 68 (QS system process) : 93 (QS system process) Pulse: 101 (QS system process) Respirations: 18 (Shanika Carranza RN) Pain Scale: 5 (Shanika Carranza RN) Pain Presence: Constant (Shanika Carranza RN) Pain Type: Burning (Shanika Carranza RN) Pain Location: Abdomen (Shanika Carranza RN) Pain Goal: 1 (Shanika Carranza RN) Pain Relief Measures: Pain Medication Given (Shanika Carranza RN) Datetime: 01/16/2017 19:20 Pulse: 105 (QS system process) SpO2 (%): 100 (QS system process) Datetime: 01/16/2017 19:19 NBP Sys/Brenna/Mean (mmHg): 144 (QS system process) : 90 (QS system process) : 111 (QS system process) Pulse: 102 (QS system process) Datetime: 01/16/2017 19:15 Pulse: 104 (QS system process) SpO2 (%): 98 (QS system process) Pain Scale: 4 (Stacie Ardon RN) Pain Presence: Intermittent (Stacie Ardon RN) Pain Type: Cramping (Stacie Ardon RN) Pain Location: Abdomen (Stacie Ardon RN) Pain Goal: 1 (Stacie Ardon RN) Datetime: 01/16/2017 19:14 NBP Sys/Brenna/Mean (mmHg): 135 (QS system process) : 80 (QS system process) : 99 (QS system process) Pulse: 105 (QS system process) Datetime: 01/16/2017 19:10 Pulse: 109 (QS system process) SpO2 (%): 100 (QS system process) Datetime: 01/16/2017 19:09 NBP Sys/Brenna/Mean (mmHg): 144 (QS system process) : 88 (QS system process) : 109 (QS system process) Pulse: 97 (QS system process) Datetime: 01/16/2017 19:05 Pulse: 105 (QS system process) SpO2 (%): 100 (QS system process) Datetime: 01/16/2017 19:04 NBP Sys/Brenna/Mean (mmHg): 145 (QS system process) : 94 (QS system process) : 114 (QS system process) Pulse: 100 (QS system process) Datetime: 01/16/2017 19:00 Pulse: 105 (QS system process) SpO2 (%): 100 (QS system process) Temperature (F): 98.0 (Stacie Ardon RN) Temperature (C): 36.7 (QS system process) Pain Scale: 4 (Stacie Ardon RN) Pain Presence: Intermittent (Stacie Ardon RN) Pain Type: Cramping (Stacie Ardon RN) Pain Location: Abdomen (Stacie Ardon RN) Pain Goal: 1 (Stacie Ardon RN) Pain Relief Measures: Comfort Measures (Annotations: 10mg of Morphine just given in OR by Anesthesia) (Stacie Ardon RN)
[2017-01-17 07:49] LABS: HEMATOCRIT 26.4 % (36.0-47.0); HEMOGLOBIN 9.2 g/dL (12.0-15.5); HGB HCT DIFFERENCE 1.2; MEAN CORPUSCULAR HEMOGLOBIN 33.1 pg (27.0-33.4); MEAN CORPUSCULAR HGB CONC 34.9 g/dL (32.0-36.0); MEAN CORPUSCULAR VOLUME 95 fl (80-97); RED BLOOD COUNT 2.78 10^6/uL (3.72-5.28); RED CELL DISTRIBUTION WIDTH 14.6 % (11.5-14.0); WHITE BLOOD COUNT 13.4 10^3/uL (4.0-10.5)
[2017-01-17] MEDS: DOCUSATE SODIUM 100 MG CAPSULE PO SCH ×2 (09:15→17:52)
[2017-01-17] MEDS: PRENATAL VITAMIN W-O CA NO5/FE FUMARATE/FA CAPSULE PO SCH (09:16)
--- NOTE | 2017-01-17 10:16 | PDOC PROGRESS REPORT ---
Subjective-OB Subjective: Post Delivery Day: 1 26 year old. Denies any needs at this time, states lochia is stable, pain is well controlled, voiding without difficulty. Ambulating, passing gas, tolerating diet. Physical Exam (OB) Vital Signs: Temp Pulse Resp BP Pulse Ox 97.6 F 99 19 127/86 H 99 01/17/17 08:29 01/17/17 08:29 01/17/17 08:29 01/17/17 08:29 01/17/17 08:29 Intake & Output 01/16/17 01/17/17 01/18/17 06:59 06:59 06:59 Intake Total 400 Output Total 1400 400 Balance -1000 -400 Weight 122.15 kg - Dressing Removed: No Incision: Well Approximated Closure Type: Sutures - Lochia Lochia Amount: Small 10-25 ml Lochia Color: Rubra/Red - Abdomen Description: Soft, Round Hernia Present: No Fundal Description: Firm, Midline Fundal Height: u/u - u/2 Objective-Diagnostic Laboratory: 01/17/17 06:50 01/16/17 13:48 01/16/17 01/16/17 01/16/17 13:00 13:48 13:48 WBC 14.6 H RBC 3.04 L Hgb 10.0 L Hct 28.7 L MCV 95 MCH 32.8 MCHC 34.7 RDW 14.5 H Plt Count 227 Seg Neutrophils % 78.4 H Lymphocytes % 15.1 Monocytes % 5.4 Eosinophils % 0.8 Basophils % 0.3 Absolute Neutrophils 11.4 H Absolute Lymphocytes 2.2 Absolute Monocytes 0.8 Absolute Eosinophils 0.1 Absolute Basophils 0.0 Sodium 137.7 Potassium 4.1 Chloride 108 H Carbon Dioxide 17 L Anion Gap 13 BUN 9 Creatinine 0.71 Est GFR ( Amer) > 60 Est GFR (Non-Af Amer) > 60 Glucose 93 Uric Acid 6.6 H Calcium 10.2 Total Bilirubin 0.5 AST 16 ALT 20 Alkaline Phosphatase 90 Total Protein 6.6 Albumin 3.2 L Urine Color YELLOW Urine Appearance SLIGHTLY-CLOUDY Urine pH 7.0 Ur Specific [place] 1.012 Urine Protein NEGATIVE Urine Glucose (UA) NEGATIVE Urine Ketones NEGATIVE Urine Blood SMALL H Urine Nitrite NEGATIVE Ur Leukocyte Esterase MODERATE H Urine WBC (Auto) 7 Urine RBC (Auto) 1 Blood Type Antibody Screen 01/16/17 01/17/17 01/17/17 13:48 06:50 06:50 WBC 13.4 H RBC 2.78 L Hgb 9.2 L Hct 26.4 L MCV 95 MCH 33.1 MCHC 34.9 RDW 14.6 H Plt Count 202 Seg Neutrophils % Lymphocytes % Monocytes % Eosinophils % Basophils % Absolute Neutrophils Absolute Lymphocytes Absolute Monocytes Absolute Eosinophils Absolute Basophils Sodium Potassium Chloride Carbon Dioxide Anion Gap BUN Creatinine Est GFR ( Amer) Est GFR (Non-Af Amer) Glucose Uric Acid Calcium Total Bilirubin AST ALT Alkaline Phosphatase Total Protein Albumin Urine Color Urine Appearance Urine pH Ur Specific [place] Urine Protein Urine Glucose (UA) Urine Ketones Urine Blood Urine Nitrite Ur Leukocyte Esterase Urine WBC (Auto) Urine RBC (Auto) Blood Type O NEGATIVE O NEGATIVE Antibody Screen NEGATIVE Assessment and Plan(PN) - Assessment and Plan (1) Delivery by section of full-term Is this a current diagnosis for this admission?: YesPlan: routine postop care anticipate d/c home - Time Spent with Patient Time with patient: Less than 15 minutes Critical Time spent with patient: Less than 15 minutes Medications reviewed and adjusted accordingly: Yes - Disposition Anticipated Discharge: Home Within: within 24 hours
[2017-01-17] MEDS: OXYCODONE-ACETAMINOPHEN 5-325 MG TABLET PO PRN ×2 (10:26→19:38)
[2017-01-17] MEDS: SIMETHICONE 80 MG TAB.CHEW PO PRN (11:31)
[2017-01-17] MEDS: MAGNESIUM HYDROXIDE SUSP 30 ML UDCUP PO PRN (17:02)
--- NOTE | 2017-01-17 18:01 | L&D Current Admission ---
Current Admit Datetime Report Generated by CPN: 01/17/2017 18:00 ADMISSION INFORMATION Current Admit Date/Time: 01/16/2017 12:54 (01/16/2017 14:34:Stacie Ardon RN) Reason for Admission: Repeat Section (01/16/2017 14:34:Stacie Ardon RN) Chief Complaint: Other (Annotations: elevated BP, sent for repeat section) (01/16/2017 13:30:Stacie Ardon RN) EGA per Dates: 37.4 (01/16/2017 14:34:QS system process) Method of Arrival: Ambulatory (01/16/2017 14:34:Stacie Ardon RN) Admitted From: [facility] (01/16/2017 14:34:Stacie Ardon RN) Reason for Induction: Not Applicable (01/16/2017 14:34:Stacie Ardon RN) Records Available: Yes (01/16/2017 14:34:Stacie Ardon RN) General Admission Information: Reviewed; Updated; Confirmed (01/16/2017 14:34:Stacie Ardon RN) General Admission Reviewed By: Magaly Ardon RN (01/16/2017 14:34:Stacie Ardon RN) BELONGINGS/ADVANCED DIRECTIVES Valuables/Personal Effects: Cell Phone; Eyeglasses; Jewelry (01/16/2017 14:34:Stacie Ardon RN) Disposition of Belongings: Kept with Patient (01/16/2017 14:34:Stacie Ardon RN) Advance Direct for Healthcare: No, and Wants No Information (01/16/2017 14:34:Stacie Ardon RN) Durable Power of Learning Designer: No (01/16/2017 14:34:Stacie Ardon RN) Living Will: No (01/16/2017 14:34:Stacie Ardon RN) Organ Donor: No (01/16/2017 14:34:Stacie Ardon RN) Pt Rights Information Given: Yes (01/16/2017 14:34:Stacie Ardon RN) Pt Understands Pt Rights: Yes (01/16/2017 14:34:Stacie Ardon RN) LEARNING ASSESSMENT Knowledge Level: Understands L_D Process (01/16/2017 14:34:Stacie Ardon RN) Barriers to Learning: None (01/16/2017 14:34:Stacie Ardon RN) Learning Readiness: Motivated (01/16/2017 14:34:Stacie Ardon RN) Learning Needs: Labor and Delivery Process; Pain Management; Symptoms to Report; Treatment Plan (01/16/2017 14:34:Stacie Ardon RN) DOMESTIC VIOLANCE SCREENING Dom Viol Threatened/Hurt: No (01/16/2017 14:34:Stacie Ardon RN) Hx of Abuse/Neglect past 2yrs: No (01/16/2017 14:34:Stacie Ardon RN) Feel Unsafe Going Home: No (01/16/2017 14:34:Stacie Ardon RN) Addt'l Observ Indicating Abuse: No (01/16/2017 14:34:Stacie Ardon RN) Reason Unable to Complete Screen: N/A, Screen Completed (01/16/2017 14:34:Stacie Ardon RN) Considered Personal Harm/Suicide: No (01/16/2017 14:34:Stacie Ardon RN) NUTRITIONAL/FUNCTIONAL SCREENING Problem with Appetite >5 Days: No (01/16/2017 14:34:Stacie Ardon RN) Chew/Swallow Difficulties: No (01/16/2017 14:34:Stacie Ardon RN) Inappropriate Wt Gain/Loss: No (01/16/2017 14:34:Stacie Ardon RN) Presence Skin Breakdown/Ulcer: No (01/16/2017 14:34:Stacie Ardon RN) Special Diet: No (01/16/2017 14:34:Stacie Ardon RN) Pt Requests Barrel Polisher Visit: No (01/16/2017 14:34:Stacie Ardon RN) Hx of Any of the Following?: N/A (01/16/2017 14:34:Stacie Ardon RN) New Diagnosis of: N/A (01/16/2017 14:34:Stacie Ardon RN) Requires Assist w/Ambulation: No (01/16/2017 14:34:Stacie Ardon RN) Uses Assist Device to Ambulate: No (01/16/2017 14:34:Stacie Ardon RN) Pt Requires Help w/ADL's: No (01/16/2017 14:34:Stacie Ardon RN)
--- NOTE | 2017-01-17 18:01 | L&D General Admission ---
General Admit Datetime Report Generated by CPN: 01/17/2017 18:00 INFORMATION Patient Age: 26 (12/05/2016 16:14:QS system process) EDC: 02/02/2017 00:00 (01/11/2017 15:26:MALU Trivedi) : 4 (01/11/2017 15:26:MALU Trivedi) Para: 3 (01/11/2017 16:19:Stacie Ardon RN) Term: 3 (01/11/2017 15:26:MALU Trivedi) : 0 (01/11/2017 15:26:MALU Trivedi) Spontaneous Abortions: 0 (01/11/2017 15:26:MALU Trivedi) Induced Abortions: 0 (01/11/2017 15:26:MALU Trivedi) Livin (01/11/2017 15:26:MALU Trivedi) Cesareans: 1 (01/11/2017 15:26:MALU Trivedi) VBACs: 0 (01/11/2017 15:26:Sujatha Davis [facility]) Ectopic: 0 (01/11/2017 15:26:[facility], [facility]) Multiple Births: 0 (01/11/2017 15:26:[facility], [facility]) Baby, Number in Womb: 1 (01/11/2017 16:19:[facility], [facility]) CARE Primary Dentist Attendant: [facility] (01/11/2017 15:26:[facility], [facility]) Month of 1st Visit: June (01/11/2017 15:26:[facility], [facility]) Adequate Care: Yes (01/11/2017 15:26:[facility], [facility]) Prepregnancy Weight (lb): 290 (01/11/2017 15:26:[facility]) Prepregnancy Weight (kg): 131.8 (01/11/2017 15:26:QS system process) Height (in): 66 (01/17/2017 08:47:QS system process) ALLERGIES Medication Allergy: Yes (01/11/2017 15:26:Sujatha Davis [facility]) Medication Allergies: buspirone HCl/KS (01/16/2017); codeine/KS (01/16/2017); latex/KS (01/16/2017) (01/16/2017 14:47:QS system process) Latex Allergy: Latex Allergies (01/11/2017 15:26:Sujatha Davis [facility]) Food Allergies: none (01/11/2017 15:26:Sujatha Davis [facility]) Environmental Allergies: none (01/11/2017 15:26:Sujatha Beloit [facility]) COMMUNICATION Primary Language: Stateless (01/11/2017 15:26:Sujatha Davis [facility]) Medical Tx Preferred Language: Stateless (01/11/2017 15:26:Sujatha Davis [facility]) Communication Barrier(s): None (01/11/2017 15:26:Sujatha Davis [facility]) DEMOGRAPHICS Address: [address] [place] [address] (12/05/2016 16:14:QS system process) Zipcode: [address] (12/05/2016 16:14:QS system process) Home (12/05/2016 16:14:QS system process) Work (12/05/2016 16:14:QS system process) SSN: [id number] (12/05/2016 16:14:QS system process) Next of Kin Name: ARTHUR REECE (12/05/2016 16:14:QS system process) Next of Kin (01/06/2017 11:47:QS system process) Next of Kin Relationship: SPO (12/05/2016 16:14:QS system process) Date of : 1990 (12/05/2016 16:14:QS system process) Marital Status: (12/05/2016 16:14:QS system process) Sex: Female (12/05/2016 16:14:QS system process) Race: (12/05/2016 16:14:QS system process) Ethnicity: Non- or (12/05/2016 16:14:QS system process) Quaker: None (12/05/2016 16:14:QS system process) DRUG AND ALCOHOL USE Alcohol: No (01/11/2017 15:26:Sujatha Camp, RNC) Cigarettes: Former Smoker. [id number] (01/11/2017 15:26:Sujatha Dvais, RNC) Marijuana: No (01/11/2017 15:26:Sujatha Davis, RNC) Cocaine: No (01/11/2017 15:26:Sujatha Davis, RNC) Other Illicit Drugs: No (01/11/2017 15:26:Sujatha Davis, RNC) VACCINE HISTORY Influenza Vaccine: Yes (01/11/2017 15:26:Sujatha Camp, [facility]) Influenza Date: 10/2016 (01/11/2017 15:26:Sujatha Camp, [facility]) Pneumococcal Vaccine: No (01/11/2017 15:26:Sujatha Camp, [facility]) Tetanus Vaccine: Yes ([facility]11/2017 [facility] Tetanus Date: 10/2016 (01/11/2017 15:26:[facility], [facility]) Tdap Vaccine: Yes (01/11/2017 15:26:Sujatha Camp, [facility]) Tdap Date: 10/2016 (01/11/2017 15:26:[facility], [facility]) Hepatitis B Vaccine: Uncertain (01/11/2017 15:26:Sujatha [place], [facility]) Business Office Representative: [facility] (01/11/2017 15:26:Sujatha Camp, [facility]) Feeding Preference: Both (01/11/2017 15:26:Stacie Ardon RN) Benefit of Breast Feed Discussed: Yes (01/11/2017 15:26:Sujatha Camp, C) Circumcision: N/A (01/11/2017 15:26:MALU Trivedi) Classes Attended: No (01/11/2017 15:26:MALU Trivedi) Tubal Ligation: No (01/11/2017 15:26:MALU Trivedi) Tubal Authorization Signed: N/A (01/11/2017 15:26:MALU Trivedi) Consent: N/A (01/11/2017 15:26:MALU Trivedi) Consent Signed: N/A (01/11/2017 15:26:MALU Trivedi) Pain Management Plans: Epidural (01/11/2017 15:26:MALU Trivedi) Other Pain Management Plans: Repeat c/s 01/26/17 (01/11/2017 15:26:MALU Trivedi) Plans for Labor and Delivery: None (01/11/2017 15:26:MALU Trivedi) Support Person: Arthur Rice (01/11/2017 15:26:MALU Trivedi) Support Person Relationship: (01/11/2017 15:26:MALU Trivedi) Cultural/Spritual Practice: No (01/11/2017 15:26:MALU Trivedi) Spir/Cult Dietary Needs: No (01/11/2017 15:26:MALU Trivedi) LIVING SITUATION/DISCHARGE PLAN Living Arrangements: House (01/11/2017 15:26:MALU Trivedi) Adequate Access to:: Electric; Heat; Refrigeration; Plumbing/Running water; Phone; Transportation (01/11/2017 15:26:MALU Trivedi) WIC Program: Yes (01/11/2017 15:26:MALU Trivedi) Discharge Devops Consultant Person: Arthur Rice (01/11/2017 15:26:MALU Trivedi) Person to Help after Discharge: Arthur Rice (01/11/2017 15:26:MALU Trivedi) Currently Using Commun Resources: Yes (01/11/2017 15:26:MALU Trivedi) Specify Current Resource Used: medicaid, wic and food stamps (01/11/2017 15:26:MALU Trivedi) Outside Agency/Lanolin Plant Operator: Yes (01/11/2017 15:26:MALU Trivedi) Specify Agency/ Lanolin Plant Operator: Josefina Davis (01/11/2017 15:26:MALU Trivedi) Car Seat for Discharge: Yes (01/11/2017 15:26:MALU Trivedi) Adoption Requested: No (01/11/2017 15:26:MALU Trivedi) Pt Contact w/ Post : N/A (01/11/2017 15:26:MALU Trivedi) LABS Blood Type: O Negative (01/11/2017 15::Stacie Ardon RN) Hemoglobin: 9.2 L (01/17/2017 06:50:QS system process) Hematocrit: 26.4 L (01/17/2017 06:50:QS system process) MCV: 95 (01/17/2017 06:50:QS system process) Group Beta Strep: neg (01/11/2017 15::Stacie Ardon RN) Gonorrhea: Negative (01/11/2017 15:26:Stacie Ardon RN) Chlamydia: Negative (01/11/2017 15:26:Stacie Ardon RN) RPR/VDRL: Nonreactive (01/11/2017 15:26:Stacie Ardon RN) HIV Exposure Test: Negative (01/11/2017 15:26:Stacie Ardon RN) Hepatitis B: Negative (01/11/2017 15:26:Stacie Ardon RN) Rubella: Non-Immune (01/11/2017 15:26:Stacie Ardon RN) OB/PREVIOUS HISTORY Previous Procedures: Ultrasound; NST; Doppler Flow Study (01/11/2017 15:26:MALU Trivedi) Current Procedures: Ultrasound; NST; Doppler Flow Study (01/11/2017 15:26:Sujatha Davis RN) History of Previous : Yes (01/11/2017 15:26:MALU Trivedi) History of Gestational Diabetes: Yes (01/11/2017 15:26:MALU Trivedi) History of PIH: No (01/11/2017 15:26:MALU Trivedi) History of Incompetent Cervix: No (01/11/2017 15:26:MALU Trivedi) History of Placenta Previa/Abrup: No (01/11/2017 15:26:MALU Trivedi) History of Macrosomia: No (01/11/2017 15:26:MALU Trivedi) History of IUGR: Yes (01/11/2017 15:26:MALU Trivedi) History of Hemorrhage: Yes (01/11/2017 15:26:Sujatha Davis [facility]) History of Loss/Stillborn: No (01/11/2017 15::Sujatha Davis [facility]) History of : No (01/11/2017 15::Sujatha Davis [facility]) History of D (Rh) Sensitization: No (01/11/2017 15::Sujatha Davis [facility]) History Recurrent Loss/Stillborn: No (01/11/2017 15::Sujatha Davis [facility]) History Depression/PP Depression: Yes (01/11/2017 15::Sujatha Davis [facility]) History of Uterine Anomaly/RYAN: No (01/11/2017 15::Sujatha Davis [facility]) History of Infertility: No (01/11/2017 15::Sujatha Davis [facility]) History of ART Treatment: No (01/11/2017 15::Sujatha Davis [facility]) History of RYAN: No (01/11/2017 15::Sujatha Davis [facility]) Comments Obstetrical History: G2- baby given up for adoption, baby with iugr G3- c/s for breech, oligo. PP hem. did not require blood transfusion G1 and G2 GDM maternal obesity close spaced (01/11/2017 15::Sujatha Davis [facility]) MEDICAL HISTORY Med Hx Diabetes: No (01/11/2017 15:26:MALU Trivedi) Med Hx Hypertension: No (01/11/2017 15::MALU Trivedi) Med Hx Heart Disease: No (01/11/2017 15:26:MALU Trivedi) Med Hx Autoimmune Disorder: No (01/11/2017 15:26:MALU Trivedi) Med Hx Kidney Disease/UTI: No (01/11/2017 15:26:MALU Trivedi) Med Hx Neurologic/Epilepsy: No (01/11/2017 15:26:MALU Trivedi) Med Hx Psychiatric Disorders: No (01/11/2017 15:26:MALU Trivedi) Med Hx Hepatitis/Liver Disease: No (01/11/2017 15:26:MALU Trivedi) Med Hx Varicosities/Phlebitis: No (01/11/2017 15:26:MALU Trivedi) Med Hx Thyroid Dysfunction: No (01/11/2017 15:26:MALU Trivedi) Med Hx Trauma/Violence: No (01/11/2017 15:26:MALU Trivedi) Med Hx Blood Transfusion: No (01/11/2017 15:26:MLAU Trivedi) Med Hx Pulmonary (Asthma,TB): No (01/11/2017 15:26:MALU Trivedi) Med Hx Breast: No (01/11/2017 15:26:MALU Trivedi) Med Hx DIRECTOR HR COMMUNICATIONS Surgery: No (01/11/2017 15:26:MALU Trivedi) Med Hx Hospitalization/Surgery: Yes (01/11/2017 15:26:MALU Trivedi) Med Hx Anesthetic Complications: No (01/11/2017 15:26:MALU Trivedi) Med Hx Abnormal Pap Smear: Yes (01/11/2017 15:26:MALU Trivedi) Other Medical Diseases: Yes (01/11/2017 15:26:MALU Trivedi) Med Hx Significant Family Hx: No (01/11/2017 15:26:MALU Trivedi) Details of Med/Surg Hx: Childbirth 2010, 2011 and 2014. Cholecystectomy 2015, h/o abnormal pap, h/o depression no meds currently (01/11/2017 15:26:MALU Trivedi) INFECTIOUS HISTORY Inf Hx Gonorrhea: No (01/11/2017 15:26:[facility]) Inf Hx Chlamydia: No (01/11/2017 15:26:[facility]) Inf Hx Syphilis: No (01/11/2017 15::[facility]) Inf Hx HIV/AIDS: No (01/11/2017 15::[facility]) Inf Hx Human Papilloma Virus: No (01/11/2017 15:26:[facility]) Inf Hx Pt/Partner Genital Herpes: No (01/11/2017 15::[facility]) Inf Hx Tuberculosis/Exposure: No (01/11/2017 15::[facility]) Inf Hx Hepatitis B,C: No (01/11/2017 15::[facility]) Inf Hx Rash or Viral Illness: No (01/11/2017 15::[facility]) GENETIC HISTORY Gen Hx Age >=35 at CINDY: No (01/11/2017 15:26:[facility]) Gen Hx Thalassemia: No (01/11/2017 15:26:[facility]) Gen Hx Congenital Heart Defect: No (01/11/2017 15:26:Sujatha Davis, [facility]) Gen Hx Neural Tube Defect: No (01/11/2017 15:26:Sujatha Davis, [facility]) Gen Hx Down's Syndrome: No (01/11/2017 15:26:Sujatha Davis, [facility]) Gen Hx Phuc-Sachs: No (01/11/2017 15:26:Sujatha Davis, [facility]) Gen Hx Brandon: No (01/11/2017 15:26:Sujatha Davis [facility]) Gen Hx Familial Dysautonomia: No (01/11/2017 15:26:Sujatha Davis, [facility]) Gen Hx Sickle Cell Disease/Trait: No (01/11/2017 15:26:Sujatha Davis [facility]) Gen Hx Hemophilia/Blood Disorder: No (01/11/2017 15:26:Sujatha Davis [facility]) Gen Hx Muscular Dystrophy: No (01/11/2017 15:26:Sujatha Davis [facility]) Gen Hx Cystic Fibrosis: No (01/11/2017 15:26:Sujatha Davis [facility]) Gen Hx Huntingtons Chorea: No (01/11/2017 15:26:Sujatha Davis [facility]) Gen Hx Mental Retardation/Autism: No (01/11/2017 15:26:Sujatha Davis [facility]) Gen Hx Tested for Fragile X: No (01/11/2017 15:26:Sujatha Davis [facility]) Gen Hx Other Inher/Chromosomal: No (01/11/2017 15:26:Sujatha Davis [facility]) Gen Hx Maternal Metabolic DO: No (01/11/2017 15:26:Sujatha Davis [facility]) Gen Hx Pt Father or FOB Defect: No (01/11/2017 15:26:Sujatha Davis [facility]) Gen Hx Other Genetic History: No (01/11/2017 15:26:Sujatha Davis [facility]) Gen Hx Drugs/Meds since LMP: No (01/11/2017 15:26:Sujatha Davis [facility])
--- NOTE | 2017-01-17 18:16 | L&D Care Plan ---
LD CARE PLANS Datetime Report Generated by CPN: 01/17/2017 18:15 Datetime: 01/16/2017 13:15 State: Risk For (Stacie Ardon RN) Related To: Surgical Procedure (Stacie Ardon RN) Goal(s): Patients Pain will be Assessed and Managed; Patient will Verbalize Adequate Relief of Pain or the Ability to [place] with Current Pain (Stacie Ardon RN) Interventions: Assess Pain Severity on Scale of 0 (None) to 5 (Severe); Assess Type, Location and Intensity of Pain Each Time Client Reports Discomfort and Notify Provider if Unusal Pain Develops; Encourage Proper Breathing and Relaxation Techniques; Offer Alternatives Such as Repositioning, Calm Environment, Massages, Diversional Activities, Ice Pack, Splinting, and Ambulation; Administer Analgesics as Ordered; Assist with Epidural Placement as Appropriate; Evaluate Therapeutic Effectiveness of Medication and Treatments (Stacie Ardon RN) Outcome: Patient will Report Absence or Relief of Pain Consistent with Established Pain Goal (Stacie Ardon RN) Status: Ongoing (Stacie Ardon RN) Outcome: Patient will have a Decrease in Signs and Symptoms of Discomfort (Stacie Ardon RN) Status: Ongoing (Stacie Ardon RN) Outcome: Pain will be Controlled During Procedures (Stacie Ardon RN) Status: Ongoing (Stacie Ardon RN) State: Risk For (Stacie Ardon RN) Related To: Surgical Procedure (Stacie Ardon RN) Goal(s): Patient will have Decreased Anxiety and be able to Function at Acceptable Levels (Stacie Ardon RN) Interventions: Assess Verbal and Nonverbal Behavioral Indicators of Anxiety; Assist Patient to Identify and Verbalize Symptoms of Anxiety; Identify and Demonstrate Techniques to Control Anxiety; Assist Patient with Coping Mechanisms to Manage Anxiety; Provide Theraputic Touch for the Patient; Explain to Patient, Using a Calm Reassuring Approach and Nonmedical Terms, All Activities, Procedures, and Concerns; Instruct Patient and Family about Post Discharge Care, Limitations, Symptoms to Report and Resources Available (Stacie Ardon RN) Outcome: Patient will Identify, Verbalize and Demonstrate Techniques to Control Anxiety (Stacie Ardon RN) Status: Ongoing (Stacie Ardon RN) Outcome: Patient's Posture, Facial Expressions, Gestures and Activity Level will Reflect Decreased Anxiety (Stacie Ardon RN) Status: Ongoing (Stacie Ardon RN) Outcome: Patient will Verbalize a Sense of Control and/or Acceptance of the Situation (Stacie Ardon RN) Status: Ongoing (Stacie Ardon RN) Outcome: Patient will Identify and Utilize Support Person (Stacie Ardon RN) Status: Ongoing (Stacie Ardon RN) State: Risk For (Stacie Ardon RN) Related To: Surgical Procedures (Stacie Ardon RN) Goal(s): Patient will Accurately Verbalize Understanding of Plan of Care and Treatment; Patient and Family will Accurately Verbalize Understanding of the Disease Process (Stacie Ardon RN) Interventions: Assess Motivation and Willingness of Patient/Family to Learn; Assess Preferred Learning Mode: One to One Instruction, Reading, Videos, Group Discussion or Demonstration; Assess Barriers to Learning: Pain, Emotional State, Language Barrier, Cognitive Impairment, Visual or Hearing Deficits; Assess Patient and Family Knowledge of Disease Process, Medications and Treatment; Discuss Therapy and/or Treatment Options, Describe Rationale Behind Management, Therapy and Treatment Recommendations; Instruct Patient and Family on Signs and Symptoms to Report; Instruct Patient and Family on Medication Effects and Side Effects; Provide Appropriate and Timely Education Using Multiple Techniques; Provide Patient and Family with Support Group Information and Resources; Give Clear and Thorough Explanations and Demonstrations (Stacie Ardon RN) Outcome: Patient and Family will Verbalize Understanding of Condition, Treatment and Signs and Symptoms to Report (Stacie Ardon RN) Status: Ongoing (Stacie Ardon RN) Outcome: Patient will Identify Perceived Learning Needs and Express Motivation to Learn (Stacie Ardon RN) Status: Ongoing (Stacie Ardon RN) Outcome: Patient will Verbalize Understanding of Desired Content, and/or Performs Desired Skill Prior to Discharge (Stacie Ardon RN) Status: Ongoing (Stacie Ardon RN)
[2017-01-17] MEDS: IBUPROFEN 800 MG TABLET PO SCH (23:56)
[2017-01-18] MEDS: HYDROMORPHONE HCL 2 MG TABLET PO PRN ×2 (00:02→04:38)
[2017-01-18] MEDS: IBUPROFEN 800 MG TABLET PO SCH (05:56)
--- NOTE | 2017-01-18 06:01 | L&D Current Admission ---
Current Admit Datetime Report Generated by CPEverette: 01/18/2017 06:00 ADMISSION INFORMATION Current Admit Date/Time: 01/16/2017 12:54 (01/16/2017 14:34:Stacie Ardon RN) Reason for Admission: Repeat Section (01/16/2017 14:34:Stacie Ardon RN) Chief Complaint: Other (Annotations: elevated BP, sent for repeat section) (01/16/2017 13:30:Stacie Ardon RN) EGA per Dates: 37.4 (01/16/2017 14:34:QS system process) Method of Arrival: Ambulatory (01/16/2017 14:34:Stacie Ardon RN) Admitted From: [facility] Office (01/16/2017 14:34:Stacie Ardon RN) Reason for Induction: Not Applicable (01/16/2017 14:34:Stacie Ardon RN) Records Available: Yes (01/16/2017 14:34:Stacie Ardon RN) General Admission Information: Reviewed; Updated; Confirmed (01/16/2017 14:34:Stacie Ardon RN) General Admission Reviewed By: Magaly Ardon RN (01/16/2017 14:34:Stacie Ardon RN) BELONGINGS/ADVANCED DIRECTIVES Valuables/Personal Effects: Cell Phone; Eyeglasses; Jewelry (01/16/2017 14:34:Stacie Ardon RN) Disposition of Belongings: Kept with Patient (01/16/2017 14:34:Stacie Ardon RN) Advance Direct for Healthcare: No, and Wants No Information (01/16/2017 14:34:Stacie Ardon RN) Durable Power of Patient Admitting Clerk: No (01/16/2017 14:34:Stacie Ardon RN) Living Will: No (01/16/2017 14:34:Stacie Ardon RN) Organ Donor: No (01/16/2017 14:34:Stacie Ardon RN) Pt Rights Information Given: Yes (01/16/2017 14:34:Stacie Ardon RN) Pt Understands Pt Rights: Yes (01/16/2017 14:34:Stacie Ardon RN) LEARNING ASSESSMENT Knowledge Level: Understands L_D Process (01/16/2017 14:34:Stacie Ardon RN) Barriers to Learning: None (01/16/2017 14:34:Stacie Ardon RN) Learning Readiness: Motivated (01/16/2017 14:34:Stacie Ardon RN) Learning Needs: Labor and Delivery Process; Pain Management; Symptoms to Report; Treatment Plan (01/16/2017 14:34:Stacie Ardon RN) DOMESTIC VIOLANCE SCREENING Dom Viol Threatened/Hurt: No (01/16/2017 14:34:Stacie Ardon RN) Hx of Abuse/Neglect past 2yrs: No (01/16/2017 14:34:Stacie Ardon RN) Feel Unsafe Going Home: No (01/16/2017 14:34:Stacie Ardon RN) Addt'l Observ Indicating Abuse: No (01/16/2017 14:34:Stacie Ardon RN) Reason Unable to Complete Screen: N/A, Screen Completed (01/16/2017 14:34:Stacie Ardon RN) Considered Personal Harm/Suicide: No (01/16/2017 14:34:Stacie Ardon RN) NUTRITIONAL/FUNCTIONAL SCREENING Problem with Appetite >5 Days: No (01/16/2017 14:34:Stacie Ardon RN) Chew/Swallow Difficulties: No (01/16/2017 14:34:Stacie Ardon RN) Inappropriate Wt Gain/Loss: No (01/16/2017 14:34:Stacie Ardon RN) Presence Skin Breakdown/Ulcer: No (01/16/2017 14:34:Stacie Ardon RN) Special Diet: No (01/16/2017 14:34:Stacie Ardon RN) Pt Requests Designer Writer Visit: No (01/16/2017 14:34:Stacie Ardon RN) Hx of Any of the Following?: N/A (01/16/2017 14:34:Stacie Ardon RN) New Diagnosis of: N/A (01/16/2017 14:34:Stacie Ardon RN) Requires Assist w/Ambulation: No (01/16/2017 14:34:Stacie Ardon RN) Uses Assist Device to Ambulate: No (01/16/2017 14:34:Stacie Ardon RN) Pt Requires Help w/ADL's: No (01/16/2017 14:34:Stacie Ardon RN)
--- NOTE | 2017-01-18 06:02 | L&D General Admission ---
General Admit Datetime Report Generated by CPN: 01/18/2017 06:00 INFORMATION Patient Age: 26 (12/05/2016 16:14:QS system process) EDC: 02/02/2017 00:00 (01/11/2017 15:26:MALU Trivedi) : 4 (01/11/2017 15:26:MALU Trivedi) Para: 3 (01/11/2017 16:19:Stacie Ardon RN) Term: 3 (01/11/2017 15:26:MALU Trivedi) : 0 (01/11/2017 15:26:MALU Trivedi) Spontaneous Abortions: 0 (01/11/2017 15:26:MALU Trivedi) Induced Abortions: 0 (01/11/2017 15:26:MALU Trivedi) Livin (01/11/2017 15:26:MALU Trivedi) Cesareans: 1 (01/11/2017 15:26:MALU Trivedi) VBACs: 0 (01/11/2017 15:26:Sujatha Davis [facility]) Ectopic: 0 (01/11/2017 15:26:[facility], [facility]) Multiple Births: 0 (01/11/2017 15:26:[facility], [facility]) Baby, Number in Womb: 1 (01/11/2017 16:19:[facility], [facility]) CARE Primary Tight Rope Walker[facility] (01/11/2017 15:26:[facility], [facility]) Month of 1st Visit: June (01/11/2017 15:26:[facility], [facility]) Adequate Care: Yes (01/11/2017 15:26:[facility], [facility]) Prepregnancy Weight (lb): 290 (01/11/2017 15:26:[facility]) Prepregnancy Weight (kg): 131.8 (01/11/2017 15:26:QS system process) Height (in): 66 (01/17/2017 08:47:QS system process) ALLERGIES Medication Allergy: Yes (01/11/2017 15:26:Sujatha Davis [facility]) Medication Allergies: buspirone HCl/WI (01/16/2017); codeine/WI (01/16/2017); latex/WI (01/16/2017) (01/16/2017 14:47:QS system process) Latex Allergy: Latex Allergies (01/11/2017 15:26:Sujatha Davis [facility]) Food Allergies: none (01/11/2017 15:26:Sujatha Davis [facility]) Environmental Allergies: none (01/11/2017 15:26:Sujatha Mundelein [facility]) COMMUNICATION Primary Language: Prydeinig (01/11/2017 15:26:Sujatha Davis [facility]) Medical Tx Preferred Language: Prydeinig (01/11/2017 15:26:Sujatha Davis [facility]) Communication Barrier(s): None (01/11/2017 15:26:Sujatha Davis [facility]) DEMOGRAPHICS Address: [address] [place] [place] [address] (12/05/2016 16:14:QS system process) Zipcode: [address] (12/05/2016 16:14:QS system process) Home (12/05/2016 16:14:QS system process) Work (12/05/2016 16:14:QS system process) SSN: [id number] (12/05/2016 16:14:QS system process) Next of Kin Name: ARTHUR REECE (12/05/2016 16:14:QS system process) Next of Kin (01/06/2017 11:47:QS system process) Next of Kin Relationship: SPO (12/05/2016 16:14:QS system process) Date of : 1990 (12/05/2016 16:14:QS system process) Marital Status: (12/05/2016 16:14:QS system process) Sex: Female (12/05/2016 16:14:QS system process) Race: (12/05/2016 16:14:QS system process) Ethnicity: Non- or (12/05/2016 16:14:QS system process) Cheondoism: None (12/05/2016 16:14:QS system process) DRUG AND ALCOHOL USE Alcohol: No (01/11/2017 15:26:Sujatha Camp, [facility]) Cigarettes: Former Smoker. [id number] (01/11/2017 15:26:Sujatha Davis, [facility]) Marijuana: No (01/11/2017 15:26:Sujatha Davis, [facility]) Cocaine: No (01/11/2017 15:26:Sujatha Davis, [facility]) Other Illicit Drugs: No (01/11/2017 15:26:Sujatha Davis, [facility]) VACCINE HISTORY Influenza Vaccine: Yes (01/11/2017 15:26:Sujatha Camp, [facility]) Influenza Date: 10/2016 (01/11/2017 15:26:Sujatha Camp, [facility]) Pneumococcal Vaccine: No (01/11/2017 15:26:Sujatha Camp, [facility]) Tetanus Vaccine: Yes [facility]11[facility]2017 [facility] Tetanus Date: 10/2016 (01/11/2017 15:26:[facility], [facility]) Tdap Vaccine: Yes (01/11/2017 15:26:Sujatha Camp, [facility]) Tdap Date: 10/2016 (01/11/2017 15:26:[facility], [facility]) Hepatitis B Vaccine: Uncertain (01/11/2017 15:26:Sujatha Mundelein, [facility]) Program Technician: [facility] (01/11/2017 15:26:Sujatha Camp, [facility]) Feeding Preference: Both (01/11/2017 15:26:Stacie Ardon RN) Benefit of Breast Feed Discussed: Yes (01/11/2017 15:26:Sujatha Camp, C) Circumcision: N/A (01/11/2017 15:26:MALU Trivedi) Classes Attended: No (01/11/2017 15:26:MALU Trivedi) Tubal Ligation: No (01/11/2017 15:26:MALU Trivedi) Tubal Authorization Signed: N/A (01/11/2017 15:26:MALU Trivedi) Consent: N/A (01/11/2017 15:26:MALU Trivedi) Consent Signed: N/A (01/11/2017 15:26:MALU Trivedi) Pain Management Plans: Epidural (01/11/2017 15:26:MALU Trivedi) Other Pain Management Plans: Repeat c/s 01/26/17 (01/11/2017 15:26:MALU Trivedi) Plans for Labor and Delivery: None (01/11/2017 15:26:MALU Trivedi) Support Person: Arthur Rice (01/11/2017 15:26:MALU Trivedi) Support Person Relationship: (01/11/2017 15:26:MALU Trivedi) Cultural/Spritual Practice: No (01/11/2017 15:26:MALU Trivedi) Spir/Cult Dietary Needs: No (01/11/2017 15:26:MALU Trivedi) LIVING SITUATION/DISCHARGE PLAN Living Arrangements: House (01/11/2017 15:26:MALU Trivedi) Adequate Access to:: Electric; Heat; Refrigeration; Plumbing/Running water; Phone; Transportation (01/11/2017 15:26:MALU Trivedi) WIC Program: Yes (01/11/2017 15:26:MALU Trivedi) Discharge Almond Huller Person: Arthur Rice (01/11/2017 15:26:MALU Trivedi) Person to Help after Discharge: Arthur Rice (01/11/2017 15:26:MALU Trivedi) Currently Using Commun Resources: Yes (01/11/2017 15:26:MALU Trivedi) Specify Current Resource Used: medicaid, wic and food stamps (01/11/2017 15:26:MALU Trivedi) Outside Agency/Resident Director: Yes (01/11/2017 15:26:MALU Trivedi) Specify Agency/ Resident Director: Josefina Davis (01/11/2017 15:26:MALU Trivedi) Car Seat for Discharge: Yes (01/11/2017 15:26:MALU Trivedi) Adoption Requested: No (01/11/2017 15:26:MALU Trivedi) Pt Contact w/ Post : N/A (01/11/2017 15:26:MALU Trivedi) LABS Blood Type: O Negative (01/11/2017 15::Stacie Ardon RN) Hemoglobin: 9.2 L (01/17/2017 06:50:QS system process) Hematocrit: 26.4 L (01/17/2017 06:50:QS system process) MCV: 95 (01/17/2017 06:50:QS system process) Group Beta Strep: neg (01/11/2017 15::Stacie Ardon RN) Gonorrhea: Negative (01/11/2017 15:26:Stacie Ardon RN) Chlamydia: Negative (01/11/2017 15:26:Stacie Ardon RN) RPR/VDRL: Nonreactive (01/11/2017 15:26:Stacie Ardon RN) HIV Exposure Test: Negative (01/11/2017 15:26:Stacie Ardon RN) Hepatitis B: Negative (01/11/2017 15:26:Stacie Ardon RN) Rubella: Non-Immune (01/11/2017 15:26:Stacie Ardon RN) OB/PREVIOUS HISTORY Previous Procedures: Ultrasound; NST; Doppler Flow Study (01/11/2017 15:26:MALU Trivedi) Current Procedures: Ultrasound; NST; Doppler Flow Study (01/11/2017 15:26:Sujatha Davis RN) History of Previous : Yes (01/11/2017 15:26:MALU Trivedi) History of Gestational Diabetes: Yes (01/11/2017 15:26:MALU Trivedi) History of PIH: No (01/11/2017 15:26:MALU Trivedi) History of Incompetent Cervix: No (01/11/2017 15:26:MALU Trivedi) History of Placenta Previa/Abrup: No (01/11/2017 15:26:MALU Trivedi) History of Macrosomia: No (01/11/2017 15:26:MALU Trivedi) History of IUGR: Yes (01/11/2017 15:26:MALU Trivedi) History of Hemorrhage: Yes (01/11/2017 15:26:Sujatha Davis [facility]) History of Loss/Stillborn: No (01/11/2017 15::Sujatha Davis [facility]) History of : No (01/11/2017 15::Sujatha Davis [facility]) History of D (Rh) Sensitization: No (01/11/2017 15::Sujatha Davis [facility]) History Recurrent Loss/Stillborn: No (01/11/2017 15::Sujatha Davis [facility]) History Depression/PP Depression: Yes (01/11/2017 15::Sujatha Davis [facility]) History of Uterine Anomaly/RYAN: No (01/11/2017 15::Sujatha Davis [facility]) History of Infertility: No (01/11/2017 15::Sujatha Davis [facility]) History of ART Treatment: No (01/11/2017 15::Sujatha Davis [facility]) History of RYAN: No (01/11/2017 15::Sujatha Davis [facility]) Comments Obstetrical History: G2- baby given up for adoption, baby with iugr G3- c/s for breech, oligo. PP hem. did not require blood transfusion G1 and G2 GDM maternal obesity close spaced (01/11/2017 15::Sujatha Davis [facility]) MEDICAL HISTORY Med Hx Diabetes: No (01/11/2017 15:26:MALU Trivedi) Med Hx Hypertension: No (01/11/2017 15::MALU Trivedi) Med Hx Heart Disease: No (01/11/2017 15:26:MALU Trivedi) Med Hx Autoimmune Disorder: No (01/11/2017 15:26:MALU Trivedi) Med Hx Kidney Disease/UTI: No (01/11/2017 15:26:MALU Trivedi) Med Hx Neurologic/Epilepsy: No (01/11/2017 15:26:MALU Trivedi) Med Hx Psychiatric Disorders: No (01/11/2017 15:26:MALU Trivedi) Med Hx Hepatitis/Liver Disease: No (01/11/2017 15:26:MALU Trivedi) Med Hx Varicosities/Phlebitis: No (01/11/2017 15:26:MALU Trivedi) Med Hx Thyroid Dysfunction: No (01/11/2017 15:26:MALU Trivedi) Med Hx Trauma/Violence: No (01/11/2017 15:26:MALU Trivedi) Med Hx Blood Transfusion: No (01/11/2017 15:26:MALU Trivedi) Med Hx Pulmonary (Asthma,TB): No (01/11/2017 15:26:MALU Trivedi) Med Hx Breast: No (01/11/2017 15:26:MALU Trivedi) Med Hx CASH APPLICATIONS CLERK Surgery: No (01/11/2017 15:26:MALU Trivedi) Med Hx Hospitalization/Surgery: Yes (01/11/2017 15:26:MALU Trivedi) Med Hx Anesthetic Complications: No (01/11/2017 15:26:MALU Trivedi) Med Hx Abnormal Pap Smear: Yes (01/11/2017 15:26:MALU Trivedi) Other Medical Diseases: Yes (01/11/2017 15:26:MALU Trivedi) Med Hx Significant Family Hx: No (01/11/2017 15:26:MALU Trivedi) Details of Med/Surg Hx: Childbirth 2010, 2011 and 2014. Cholecystectomy 2015, h/o abnormal pap, h/o depression no meds currently (01/11/2017 15:26:MALU Trivedi) INFECTIOUS HISTORY Inf Hx Gonorrhea: No (01/11/2017 15:26:[facility]) Inf Hx Chlamydia: No (01/11/2017 15:26:[facility]) Inf Hx Syphilis: No (01/11/2017 15::[facility]) Inf Hx HIV/AIDS: No (01/11/2017 15::[facility]) Inf Hx Human Papilloma Virus: No (01/11/2017 15:26:[facility]) Inf Hx Pt/Partner Genital Herpes: No (01/11/2017 15::[facility]) Inf Hx Tuberculosis/Exposure: No (01/11/2017 15::[facility]) Inf Hx Hepatitis B,C: No (01/11/2017 15::[facility]) Inf Hx Rash or Viral Illness: No (01/11/2017 15::[facility]) GENETIC HISTORY Gen Hx Age >=35 at CINDY: No (01/11/2017 15:26:[facility]) Gen Hx Thalassemia: No (01/11/2017 15:26:[facility]) Gen Hx Congenital Heart Defect: No (01/11/2017 15:26:Sujatha Davis, [facility]) Gen Hx Neural Tube Defect: No (01/11/2017 15:26:Sujatha Davis, [facility]) Gen Hx Down's Syndrome: No (01/11/2017 15:26:Sujatha Davis, [facility]) Gen Hx Phuc-Sachs: No (01/11/2017 15:26:Sujatha Davis, [facility]) Gen Hx Brandon: No (01/11/2017 15:26:Sujatha Davis [facility]) Gen Hx Familial Dysautonomia: No (01/11/2017 15:26:Sujatha Davis, [facility]) Gen Hx Sickle Cell Disease/Trait: No (01/11/2017 15:26:Sujatha Davis [facility]) Gen Hx Hemophilia/Blood Disorder: No (01/11/2017 15:26:Sujatha Davis [facility]) Gen Hx Muscular Dystrophy: No (01/11/2017 15:26:Sujatha Davis [facility]) Gen Hx Cystic Fibrosis: No (01/11/2017 15:26:Sujatha Davis [facility]) Gen Hx Huntingtons Chorea: No (01/11/2017 15:26:Sujatha Davis [facility]) Gen Hx Mental Retardation/Autism: No (01/11/2017 15:26:Sujatha Davis [facility]) Gen Hx Tested for Fragile X: No (01/11/2017 15:26:Sujatha Davis [facility]) Gen Hx Other Inher/Chromosomal: No (01/11/2017 15:26:Sujatha Davis [facility]) Gen Hx Maternal Metabolic DO: No (01/11/2017 15:26:Sujatha Davis [facility]) Gen Hx Pt Father or FOB Defect: No (01/11/2017 15:26:Sujatha Davis [facility]) Gen Hx Other Genetic History: No (01/11/2017 15:26:Sujatha Davis [facility]) Gen Hx Drugs/Meds since LMP: No (01/11/2017 15:26:Sujatha Davis [facility])
[2017-01-18] MEDS: SIMETHICONE 80 MG TAB.CHEW PO PRN (08:40)
[2017-01-18] MEDS: MAGNESIUM HYDROXIDE SUSP 30 ML UDCUP PO PRN (08:40)
[2017-01-18] MEDS: PRENATAL VITAMIN W-O CA NO5/FE FUMARATE/FA CAPSULE PO SCH (10:11)
[2017-01-18] MEDS: DOCUSATE SODIUM 100 MG CAPSULE PO SCH (10:11)
[2017-01-18 12:38] VITALS: BP 118/68
--- NOTE | 2017-01-18 18:03 | PDOC DISCHARGE SUMMARY ---
Final Diagnosis Discharge Date: 01/18/17 - Final Diagnosis (1) Status post repeat low transverse section Is this a current diagnosis for this admission?: Yes (2) Gestational hypertension Is this a current diagnosis for this admission?: Yes (3) Obesity (BMI 30-39.9) Is this a current diagnosis for this admission?: Yes Discharge Data - Discharge Medication Home Medications: Pnv No.122/Iron/Folic Acid [ Multi Tablet] 1 tab PO DAILY 01/11/17 Docusate Sodium [Colace 100 mg Capsule] 100 mg PO BID #60 capsule 01/18/17 Ferrous Sulfate [Feosol 325 mg Tablet] 325 mg PO BID #60 tab 01/18/17 Ibuprofen [Motrin 800 mg Tablet] 800 mg PO Q8HP PRN #60 tablet 01/18/17 Oxycodone HCl/Acetaminophen [Percocet 5-325 mg Tablet] 1 tab PO Q4HP PRN #30 tablet 01/18/17 Reason(s) for Admission: Ceasarean Section-Repeat, Other - severe range Blood pressures Procedures: NST, Ultrasound Intrapartum Procedure(s): : Low Cervical, Transverse - [place] Data Baby 1 Female at 1 minute: 8 at 5 minutes: 9 Weight: 3200 kg Home with Mother: Yes Complications: No - Diagnosis Test Laboratory: Temp Pulse Resp BP Pulse Ox 98.0 F 106 H 18 118/68 99 01/18/17 12:37 01/18/17 12:37 01/18/17 12:37 01/18/17 12:37 01/18/17 12:37 01/16/17 01/16/17 01/17/17 13:00 13:48 06:50 RBC 3.04 L 2.78 L Hgb 10.0 L 9.2 L Hct 28.7 L 26.4 L Urine Opiates Screen NEGATIVE - Discharge information/Instructions Discharge Activity: Activity As Tolerated, Balance Activity w/Rest, No Driving, No Lifting Over 10 Pounds, No Lifting/Push/Pulling, Pelvic Rest, Slowly Increase Activity, No tub bath Discharge Diet: Regular Disposition: HOME, SELF-CARE Follow up with: [facility] in: 1, Weeks - incision and Blood pressure check Physical Exam (OB) Vital Signs: Temp Pulse Resp BP Pulse Ox 98.0 F 106 H 18 118/68 99 01/18/17 12:37 01/18/17 12:37 01/18/17 12:37 01/18/17 12:37 01/18/17 12:37 Intake & Output 01/17/17 01/18/17 01/19/17 06:59 06:59 06:59 Intake Total 400 1200 250 Output Total 1400 400 Balance -1000 800 250 Weight 122.15 kg - General General Appearance: Appears well In distress: None - PIH/Pre-Eclampsia Headache: Absent Epigastric Pain: No Visual Changes: No - Dressing Removed: No - open to air, dermabond and stitches, no drainage, redness or swelling noted Incision: Well Approximated Closure Type: Surgical Glue - Lochia Lochia Amount: Scant < 10 ml Lochia Color: Rubra/Red - Abdomen Description: Tender, Soft Hernia Present: No Fundal Description: Firm, Midline Fundal Height: u/u - u/2 - Respiratory Respiratory Status: No respiratory distress - Extremities Upper extremity: Normal inspection Lower extremities: Edema - +2 - Neurological Cognition: Normal Orientation: AAOx4 - Psychological Associated symptoms: Normal affect, Normal mood - bonding well with baby, supportive at bedside
--- NOTE | 2017-01-30 20:46 | Operative Report ---
Operative Report DATE OF SURGERY: 01/16/17 OPERATION: Repeat Section ANESTHESIA: Spinal PROCEDURE: PREOPERATIVE DIAGNOSIS: undelivered at [37+4] weeks, morbid obesity, history of prior section, gestational hypertension versus preeclampsia POSTOPERATIVE DIAGNOSIS: Same as above delivered Procedure: Repeat low transverse section via Pfannenstiel incision Account Administrator:[None] Anesthesia: Spinal Anesthesia provider: [Cali Lynch MIXING PICKER TENDER] Estimated blood loss: [500ml] Urine output: [280ml] IV fluids: [1800ml] Complications: [None] Specimens: [None] Findings: [viable female infant. Apgars 8 and 9 weight 7 lbs 1 oz. and time of 1800. Uterus normal except for moderate adhesions to the anterior abdominal wall. Normal tubes and ovaries bilaterally.] Indications: [26yo at 37+4ega with a history of vaginal delivery 2, section in September 2015 for breech (unable to perform ECV due to oligohydramnios) presents from maternal medicine office due to headache and elevated blood pressures again this week. Blood pressure in the [facility] office last week was 151/96 and then in the office at [facility] last week also elevated and elevated again today at 141/101 42/103. Patient denies history of chronic hypertension and denies complications during . She reports a history of gestational diabetes in second and third 1 hour glucose normal this . Cervix 4 cm on evaluation and offered transfer to [facility] for possible trial of labor after section however the patient declines and desires to proceed with repeat . She desires ParaGard IUD for contraception . She reports that she is having a headache but denies right upper quadrant pain and blurry vision. Uric acid and creatinine are elevated LFTs and platelets were normal concern for developing preeclampsia. The risks benefits and alternatives to repeat section reviewed with patient and patient desires to proceed with planned procedure] Procedure: The patient was taken to the operating room where spinal anesthesia was obtained and found to be adequate. She was then prepped and draped in the normal sterile fashion and placed in the dorsal supine position with a leftward tilt. A Pfannenstiel skin incision was then made and carried through to the underlying layers of the fascia with the scalpel. The fascia was incised in the midline and the incision extended laterally with the Bernardo scissors. The superior aspect of the fascial incision was then grasped with Stuart clamps elevated and the underlying rectus muscles dissected off [sharply and bluntly]. Attention was then turned to the inferior aspect of the fascial incision which in a similar fashion was grasped, tented up with Louie clamps, and the rectus muscles dissected off [bluntly]. The rectus muscles were then in the midline and the peritoneum at the amount identified and entered [sharply and bluntly]. The peritoneal incision was then extended superiorly and inferiorly with good visualization of the bladder. Adhesions of the uterus to the anterior abdominal wall were dissected both sharply and with cautery. The bladder blade was inserted and the vesicouterine peritoneum identified grasped with [place]orese pickups and entered sharply with the Metzenbaum scissors. This incision was then extended laterally with the Metzenbaum scissors and a bladder flap created digitally. The bladder blade was then reinserted and the lower uterine segment incised in a transverse fashion with the scalpel. The uterine incision was then extended bluntly. The bladder blade was removed and the 's head was delivered from cephalic presentation atraumatically. The nose and mouth were suctioned and the cord doubly clamped and cut. And the was handed off to waiting pediatricians. The placenta was then delivered spontaneously and the uterus exteriorized and cleared of all clots and debris. The uterine incision was then repaired with 1- 0 Vicryl in a running locked fashion. A second layer of the same suture was used to obtain hemostasis via imbrication of the initial layer. The bladder flap was then repaired with 3-0 chromic in a running fashion. The uterus was returned to the patient's abdomen and Interceed was placed overlying the uterine incision to prevent adhesions. The gutters were cleared of all clots and debris. All operative sites were noted to be hemostatic. The fascia was reapproximated with 0 Vicryl in a running fashion from each lateral edge to the midline. The skin was closed with 3-0 Monocryl in a running subcuticular fashion with overlying Dermabond for additional dressing as well as wound closure. The patient tolerated the procedure well. Sponge lap needle and instrument counts are correct 2. 3g of Ancef were given prior to skin incision. The patient was taken to the recovery area awake and in stable condition.
== END 2017-01-18 12:39 | disposition home or self-care (01) | DRG 765 ==
LOC: LR 12:33 → 2S 20:56
PROVIDERS: ADMIT Student in an Organized Health Care Education/Training Program; ATTEND Student in an Organized Health Care Education/Training Program
PROC: 10D00Z1 Extraction of Products of Conception, Low, Open Approach (ICD-10-PCS; principal; 2017-01-16)
PROC: 10907ZC Drainage of Amniotic Fluid, Therapeutic from Products of Conception, Via Natural or Artificial Opening (ICD-10-PCS; 2017-01-16)
PROC: 4A1HXCZ Monitoring of Products of Conception, Cardiac Rate, External Approach (ICD-10-PCS; 2017-01-16)
PROC: 3E0334Z Introduction of Serum, Toxoid and Vaccine into Peripheral Vein, Percutaneous Approach (ICD-10-PCS; 2017-01-17)
PROC: 3E0134Z Introduction of Serum, Toxoid and Vaccine into Subcutaneous Tissue, Percutaneous Approach (ICD-10-PCS; 2017-01-18)
DX: O34.211 Maternal care for low transverse scar from previous cesarean delivery (principal); Z68.41 Body mass index [BMI] 40.0-44.9, adult; O13.4 Gestational [pregnancy-induced] hypertension without significant proteinuria, complicating childbirth; O99.214 Obesity complicating childbirth; E66.01 Morbid (severe) obesity due to excess calories; O36.5930 Maternal care for other known or suspected poor fetal growth, third trimester, not applicable or unspecified; O99.344 Other mental disorders complicating childbirth; O26.893 Other specified pregnancy related conditions, third trimester; Z67.41 Type O blood, Rh negative; F32.9 Major depressive disorder, single episode, unspecified; Z79.899 Other long term (current) drug therapy; Z88.6 Allergy status to analgesic agent; Z88.8 Allergy status to other drugs, medicaments and biological substances; Z91.040 Latex allergy status; Z87.891 Personal history of nicotine dependence; Z23 Encounter for immunization; Z3A.37 37 weeks gestation of pregnancy; Z37.0 Single live birth
CPT/HCPCS: 1961; 36415; 80053; 80307; 81001; 83615; 84550; 85025; 85027; 85461; 86850; 86900; 86901; 90707; 94760; 94799; J0131; J0690; J1170; J1885; J2250; J2270; J2370; J2405; J2590; J2704; J2765; J2790; J3010; J3490; J7120

== ENCOUNTER 2017-03-08 12:59 | Emergency (ER) | payer MEDICAID ==
[2017-03-08] MEDS ORDERED: NAPROXEN 250 MG TABLET PO ONE (13:50)
[2017-03-08] MEDS ORDERED: ONDANSETRON 4 MG TAB.RAPDIS PO ONE (13:50)
--- NOTE | 2017-03-08 13:55 | ER Document Report ---
ED GI/ - General Chief Complaint: Abdominal Pain Stated Complaint: VOMITING Notes: The patient is a 26-year-old female, past medical history cholecystectomy, 2 C- sections, presents with 2 days of nausea, vomiting, diarrhea and right flank pain. Her last was 2 months ago. She denies dysuria, hematuria, headache, blood in stool, chest pain, shortness of breath or fevers. I have greeted and performed a rapid initial assessment of this patient. A comprehensive ED assessment and evaluation of the patient, analysis of test results and completion of the medical decision making process will be conducted by additional ED providers. TRAVEL OUTSIDE OF THE [place] IN LAST 30 DAYS: No - Related Data Allergies/Adverse Reactions: buspirone HCl [From MYR] Allergy (Mild, Verified 03/08/17 13:03) codeine Allergy (Mild, Verified 03/08/17 13:03) latex Allergy (Mild, Verified 03/08/17 13:03) Past Medical History - General Information source: Patient - Social History Smoking Status: Unknown if Ever Smoked Family History: Reviewed & Not Pertinent Patient has suicidal ideation: No Patient has homicidal ideation: No Pulmonary Medical History: Reports: Hx Bronchitis Renal/ Medical History: Denies: Hx Peritoneal Dialysis Psychiatric Medical History: Reports: Hx Anxiety, Hx Depression Past Surgical History: Reports: Hx Section, Hx Cholecystectomy, Hx Oral Surgery - wisdom teeth - Immunizations Immunizations up to date: No Hx Diphtheria, Pertussis, Tetanus Vaccination: No Review of Systems - Review of Systems Notes: REVIEW OF SYSTEMS: CONSTITUTIONAL: -fevers, -chills EENT: -eye pain, -difficulty swallowing, -nasal congestion CARDIOVASCULAR:-chest pain, -syncope. RESPIRATORY: -cough, -SOB GASTROINTESTINAL: +abdominal pain, +nausea, +vomiting, +diarrhea GENITOURINARY: -dysuria, -hematuria MUSCULOSKELETAL: -back pain, -neck pain SKIN: -rash or skin lesions. HEMATOLOGIC: -easy bruising or bleeding. LYMPHATIC: -swollen, enlarged glands. NEUROLOGICAL: -altered mental status or loss of consciousness, -headache, - neurologic symptoms PSYCHIATRIC: -anxiety, -depression. ALL OTHER SYSTEMS REVIEWED AND NEGATIVE. Physical Exam - Vital signs Vitals: Temp Pulse Resp BP Pulse Ox 97.7 F 73 20 139/87 H 99 03/08/17 13:04 03/08/17 13:04 03/08/17 13:04 03/08/17 13:04 03/08/17 13:04 - Notes Notes: PHYSICAL EXAMINATION: GENERAL: Patient crying, but will stop when asked questions. HEAD: Atraumatic, normocephalic. EYES: Pupils equal round and reactive to light, extraocular movements intact, sclera anicteric, conjunctiva are normal. ENT: nares patent, oropharynx clear without exudates. Moist mucous membranes. NECK: Normal range of motion, supple without lymphadenopathy LUNGS: Breath sounds clear to auscultation bilaterally and equal. No wheezes rales or rhonchi. HEART: Regular rate and rhythm without murmurs ABDOMEN: Soft, nontender, normoactive bowel sounds. No guarding, no rebound. No masses appreciated. EXTREMITIES: Normal range of motion, no pitting or edema. No cyanosis. NEUROLOGICAL: Cranial nerves grossly intact. Normal speech, normal gait. Normal sensory, motor, and reflex exams. PSYCH: Normal mood, normal affect. SKIN: Warm, Dry, normal turgor, no rashes or lesions noted. Course - Vital Signs Vital signs: Temp Pulse Resp BP Pulse Ox 97.7 F 73 20 139/87 H 99 03/08/17 13:04 03/08/17 13:04 03/08/17 13:04 03/08/17 13:04 03/08/17 13:04 - Laboratory Result Diagrams: 03/08/17 15:09 03/08/17 15:09 Laboratory results interpreted by me: 03/08/17 03/08/17 03/08/17 14:10 15:09 15:09 WBC 12.0 H RDW 14.4 H Seg Neutrophils % 82.2 H Absolute Neutrophils 9.9 H Sodium 145.5 H Glucose 120 H Calcium 10.5 H Urine Protein 100 H Urine Ketones TRACE H Ur Leukocyte Esterase MODERATE H
[2017-03-08 14:44] LABS: APPEARANCE,URINE CLOUDY; BILIRUBIN,URINE NEGATIVE (NEGATIVE); GLUCOSE, URINE NEGATIVE (NEGATIVE); KETONES,URINE TRACE mg/dL (NEGATIVE); LEUKOCYTE ESTERASE,URINE MODERATE (NEGATIVE); NITRITE,URINE NEGATIVE (NEGATIVE); PROTEIN,URINE 100 mg/dL (NEGATIVE); URINE SPECIFIC GRAVITY 1.024; UROBILINOGEN,URINE NEGATIVE mg/dL (<2.0)
--- NOTE | 2017-03-08 14:47 | ER Document Report ---
ED GI/ - General Chief Complaint: Abdominal Pain Stated Complaint: VOMITING Time seen by provider: 14:47 Mode of Arrival: Ambulatory Information source: Patient Notes: 26-year-old [id number] obese female complaining of sudden onset of right middle and upper quadrant abdominal pain last evening about 10:30 which is sharper at times causing her to vomit. She states the pain radiates mildly to the flank but most of the pain is in the front. She also has diarrhea. Cholecystectomy one year ago. Had a baby in December. Urinalysis shows a few white blood cells and a trace of bacteria with negative test that was ordered in triage. No fever or chills. She was unable to keep the Naprosyn down TRAVEL OUTSIDE OF THE [place] IN LAST 30 DAYS: No - Related Data Allergies/Adverse Reactions: buspirone HCl [From BuSpar] Allergy (Mild, Verified 03/08/17 13:03) codeine Allergy (Mild, Verified 03/08/17 13:03) latex Allergy (Mild, Verified 03/08/17 13:03) Past Medical History - General Information source: Patient - Social History Smoking Status: Unknown if Ever Smoked Family History: Reviewed & Not Pertinent Patient has suicidal ideation: No Patient has homicidal ideation: No Pulmonary Medical History: Reports: Hx Bronchitis Renal/ Medical History: Denies: Hx Peritoneal Dialysis Psychiatric Medical History: Reports: Hx Anxiety, Hx Depression Past Surgical History: Reports: Hx Section, Hx Cholecystectomy, Hx Oral Surgery - wisdom teeth - Immunizations Immunizations up to date: No Hx Diphtheria, Pertussis, Tetanus Vaccination: No Review of Systems - Review of Systems Constitutional: No symptoms reported EENT: No symptoms reported Cardiovascular: No symptoms reported Respiratory: No symptoms reported Gastrointestinal: See HPI Genitourinary: No symptoms reported Female Genitourinary: No symptoms reported Musculoskeletal: No symptoms reported Skin: No symptoms reported Hematologic/Lymphatic: No symptoms reported Neurological/Psychological: No symptoms reported Physical Exam - Vital signs Vitals: Temp Pulse Resp BP Pulse Ox 97.7 F 73 20 139/87 H 99 03/08/17 13:04 03/08/17 13:04 03/08/17 13:04 03/08/17 13:04 03/08/17 13:04 Interpretation: Normal - General General appearance: Appears well, Alert - HEENT Head: Normocephalic, Atraumatic Eyes: Normal Conjunctiva: Normal Pupils: PERRL Mucous membranes: Normal Pharynx: Normal Neck: Supple. No: Lymphadenopathy - Respiratory Respiratory status: No respiratory distress Chest status: Nontender Breath sounds: Normal Chest palpation: Normal - Cardiovascular Rhythm: Regular Heart sounds: Normal auscultation Murmur: No - Abdominal Inspection: Normal Distension: No distension Bowel sounds: Normal Tenderness: Tender - right upper quadrant, mild Organomegaly: No organomegaly - Back Back: Normal, Nontender. No: CVA tenderness - Extremities General upper extremity: Normal inspection, Nontender, Normal color, Normal ROM , Normal temperature General lower extremity: Normal inspection, Nontender, Normal color, Normal ROM , Normal temperature, Normal weight bearing. No: Lashay's sign - Neurological Neuro grossly intact: Yes Cognition: Normal Orientation: AAOx4 Blayne Coma Scale Eye Opening: Spontaneous [place]ayne Coma Scale Verbal: Oriented [place] Coma Scale Motor: Obeys Commands [place] Coma Scale Total: 15 Speech: Normal Motor strength normal: LUE, RUE, LLE, RLE Sensory: Normal - Psychological Associated symptoms: Normal affect, Normal mood - Skin Skin Temperature: Warm Skin Moisture: Dry Skin Color: Normal Skin irregularity: negative: Rash Course - Re-evaluation Re-evalutation: 03/08/17 16:44 feels better, able to keep gingerale down. 03/08/17 17:22 Patient is standing in the room she feels a lot better she feels some dull soreness right and left upper quadrant she thinks it is due to the violent vomiting that she did 20 times at home. She does want to take some nausea medicine home and she also thinks that her heartburn is acting up so I will give her some Maalox and Prevacid 30 mg ODT. She feels like she can go home. 03/08/17 17:26 - Vital Signs Vital signs: Temp Pulse Resp BP Pulse Ox 98.3 F 94 20 114/81 98 03/08/17 17:45 03/08/17 17:45 03/08/17 17:45 03/08/17 17:45 03/08/17 17:45 - Laboratory Result Diagrams: 03/08/17 15:09 03/08/17 15:09 Laboratory results interpreted by me: 03/08/17 03/08/17 03/08/17 14:10 15:09 15:09 WBC 12.0 H RDW 14.4 H Seg Neutrophils % 82.2 H Absolute Neutrophils 9.9 H Sodium 145.5 H Glucose 120 H Calcium 10.5 H Urine Protein 100 H Urine Ketones TRACE H Ur Leukocyte Esterase MODERATE H Discharge - Discharge Clinical Impression: nausea vomiting and diarrhea, upper abdominal pain Condition: Good Disposition: HOME, SELF-CARE Instructions: Nausea or Vomiting, Nonspecific ([facility]), Diarrhea, Nonspecific ([facility] ), Evaluation of Upper Abdominal Pain ([facility]) Additional Instructions: Drink plenty of fluids to continue to hydrate Advance diet as tolerated Return to the emergency room if pain recurs, gets worse, vomiting diarrhea recurs or any concerns Please complete the patient satisfaction survey if you get one, and return it.. If you do not receive a survey, then you can go to the [facility] website, [email or web address] and place your comments about your very good care. Thank you very much. It was a pleasure being your medical provider today. Prescriptions: Promethazine HCl [Phenergan 25 mg Tablet] 25 mg PO Q4HP PRN #20 tablet PRN Reason: Esomeprazole Magnesium [Nexium] 40 mg PO DAILY #14 capsule.dr Forms: Return to Work
[2017-03-08] MEDS ORDERED: NORMAL SALINE 1000 ML 2,000 ML IV ONE (14:48)
[2017-03-08] MEDS ORDERED: KETOROLAC TROMETHAMINE INJ/PF 30 MG/1 ML SDV IV ONE (14:56)
[2017-03-08] MEDS ORDERED: ONDANSETRON HCL INJ/PF 4 MG/2 ML SDV IV ONE (14:56)
[2017-03-08 15:31] LABS: ABSOLUTE BASOPHILS # (AUTO) 0.1 10^3/uL (0.0-0.2); ABSOLUTE LYMPHOCYTES (AUTO) 1.7 10^3/uL (0.5-4.7); ABSOLUTE MONOCYTES (AUTO) 0.4 10^3/uL (0.1-1.4); ABSOLUTE NEUT (AUTO) 9.9 10^3/uL (1.7-8.2); BASOPHILS % (AUTO) 0.6 % (0-2); EOSINOPHILS % (AUTO) 0.2 % (0-6); HEMATOCRIT 39.7 % (36.0-47.0); HEMOGLOBIN 13.2 g/dL (12.0-15.5); HGB HCT DIFFERENCE -0.1; LYMPHOCYTES % (AUTO) 13.7 % (13-45); MEAN CORPUSCULAR HEMOGLOBIN 29.7 pg (27.0-33.4); MEAN CORPUSCULAR HGB CONC 33.4 g/dL (32.0-36.0); MEAN CORPUSCULAR VOLUME 89 fl (80-97); MONOCYTES % (AUTO) 3.3 % (3-13); RED BLOOD COUNT 4.46 10^6/uL (3.72-5.28); RED CELL DISTRIBUTION WIDTH 14.4 % (11.5-14.0); SEGMENTED NEUTROPHILS % (AUTO) 82.2 % (42-78)
[2017-03-08 15:45] LABS: ALANINE AMINOTRANSFERASE 43 U/L (9-52); ALBUMIN 4.8 g/dL (3.5-5.0); ALKALINE PHOSPHATASE 69 U/L (38-126); ANION GAP 16 (5-19); ASPARTATE AMINO TRANSFERASE 23 U/L (14-36); BILIRUBIN,DIRECT 0.3 mg/dL (0.0-0.4); BILIRUBIN,TOTAL 0.6 mg/dL (0.2-1.3); BLOOD UREA NITROGEN 13 mg/dL (7-20); CALCIUM 10.5 mg/dL (8.4-10.2); CARBON DIOXIDE 25 mmol/L (22-30); CHLORIDE 105 mmol/L (98-107); CREATININE RESULT 0.77 mg/dL (0.52-1.25); GLUCOSE 120 mg/dL (75-110); POTASSIUM 4.2 mmol/L (3.6-5.0); SODIUM 145.5 mmol/L (137-145); TOTAL PROTEIN 7.8 g/dL (6.3-8.2)
[2017-03-08] MEDS ORDERED: LANSOPRAZOLE 30 MG TAB.RAP.DR PO ONE (17:22)
[2017-03-08] MEDS ORDERED: MAG HYDROX/AL HYDROX/SIMETH SUSP 30 ML UDCUP PO ONE (17:22)
[2017-03-08 17:46] VITALS: BP 114/81
== END 2017-03-08 17:45 | disposition home or self-care (01) ==
LOC: ER 12:59
DX: R11.2 Nausea with vomiting, unspecified (principal); R19.7 Diarrhea, unspecified; R10.10 Upper abdominal pain, unspecified; R11.10 Vomiting, unspecified
CPT/HCPCS: 99284; 96361; 96374; 96375; 36415; 87086; 83690; 85025; 81025; 80053; 81001; S0119; J3490 ×2; J1885; J2405; J7030

== ENCOUNTER 2017-03-09 10:46 | Emergency (ER) | payer MEDICAID ==
[2017-03-09 10:51] VITALS: BP 149/102
--- NOTE | 2017-03-09 11:09 | ER Document Report ---
ED Medical Screen (RME) - General Chief Complaint: Abdominal Pain Stated Complaint: ABDOMINAL PAIN Notes: The patient is a 26-year-old female, past medical history cholecystectomy, 2 C- sections, presents with 3 days of nausea, vomiting, diarrhea and right flank pain. Her last was 2 months ago. She was seen in the ER yesterday for similar symptoms and prescribed Phenergan to go home with. No imaging was completed yesterday. She is taking the Phenergan and her nausea and vomiting have resolved, but her right flank pain and right lower quadrant abdominal pain have worsened. She denies dysuria, hematuria, headache, blood in stool, chest pain, shortness of breath or fevers. I have greeted and performed a rapid initial assessment of this patient. A comprehensive ED assessment and evaluation of the patient, analysis of test results and completion of the medical decision making process will be conducted by additional ED providers. TRAVEL OUTSIDE OF THE [place] IN LAST 30 DAYS: No - Related Data Allergies/Adverse Reactions: buspirone HCl [From Adynxx] Allergy (Mild, Verified 03/08/17 13:03) codeine Allergy (Mild, Verified 03/08/17 13:03) latex Allergy (Mild, Verified 03/08/17 13:03) Past Medical History Pulmonary Medical History: Reports: Hx Bronchitis Renal/ Medical History: Denies: Hx Peritoneal Dialysis Psychiatric Medical History: Reports: Hx Anxiety, Hx Depression Past Surgical History: Reports: Hx Section, Hx Cholecystectomy, Hx Oral Surgery - wisdom teeth - Immunizations Immunizations up to date: No Hx Diphtheria, Pertussis, Tetanus Vaccination: No Physical Exam - Vital signs Vitals: Temp Pulse Resp BP Pulse Ox 98.3 F 86 20 149/102 H 99 03/09/17 10:48 03/09/17 10:48 03/09/17 10:48 03/09/17 10:48 03/09/17 10:48 Course - Vital Signs Vital signs: Temp Pulse Resp BP Pulse Ox 98.3 F 86 20 149/102 H 99 03/09/17 10:48 03/09/17 10:48 03/09/17 10:48 03/09/17 10:48 03/09/17 10:48
[2017-03-09] MEDS ORDERED: HYDROCODONE/ACETAMINOPHEN 5-325 MG TABLET PO ONE (11:15)
[2017-03-09 12:25] LABS: ABSOLUTE EOSINOPHILS # (AUTO) 0.2 10^3/uL (0.0-0.6); ABSOLUTE LYMPHOCYTES (AUTO) 2.7 10^3/uL (0.5-4.7); ABSOLUTE MONOCYTES (AUTO) 0.5 10^3/uL (0.1-1.4); ABSOLUTE NEUT (AUTO) 6.4 10^3/uL (1.7-8.2); BASOPHILS % (AUTO) 0.4 % (0-2); EOSINOPHILS % (AUTO) 1.9 % (0-6); HEMATOCRIT 36.2 % (36.0-47.0); HEMOGLOBIN 12.5 g/dL (12.0-15.5); HGB HCT DIFFERENCE 1.3; LYMPHOCYTES % (AUTO) 27.3 % (13-45); MEAN CORPUSCULAR HEMOGLOBIN 31.1 pg (27.0-33.4); MEAN CORPUSCULAR HGB CONC 34.6 g/dL (32.0-36.0); MEAN CORPUSCULAR VOLUME 90 fl (80-97); MONOCYTES % (AUTO) 5.3 % (3-13); RED BLOOD COUNT 4.03 10^6/uL (3.72-5.28); RED CELL DISTRIBUTION WIDTH 14.5 % (11.5-14.0); SEGMENTED NEUTROPHILS % (AUTO) 65.1 % (42-78); WHITE BLOOD COUNT 9.8 10^3/uL (4.0-10.5)
[2017-03-09 12:42] LABS: APPEARANCE,URINE SLIGHTLY-CLOUDY; BILIRUBIN,URINE NEGATIVE (NEGATIVE); GLUCOSE, URINE NEGATIVE (NEGATIVE); KETONES,URINE NEGATIVE (NEGATIVE); LEUKOCYTE ESTERASE,URINE MODERATE (NEGATIVE); NITRITE,URINE NEGATIVE (NEGATIVE); PROTEIN,URINE NEGATIVE (NEGATIVE); URINE SPECIFIC GRAVITY 1.018; UROBILINOGEN,URINE NEGATIVE mg/dL (<2.0)
[2017-03-09 12:47] LABS: ALANINE AMINOTRANSFERASE 43 U/L (9-52); ALBUMIN 4.4 g/dL (3.5-5.0); ALKALINE PHOSPHATASE 64 U/L (38-126); ANION GAP 14 (5-19); ASPARTATE AMINO TRANSFERASE 24 U/L (14-36); BILIRUBIN,DIRECT 0.2 mg/dL (0.0-0.4); BILIRUBIN,TOTAL 0.5 mg/dL (0.2-1.3); BLOOD UREA NITROGEN 14 mg/dL (7-20); CARBON DIOXIDE 23 mmol/L (22-30); CHLORIDE 108 mmol/L (98-107); CREATININE RESULT 0.83 mg/dL (0.52-1.25); GLUCOSE 93 mg/dL (75-110); LIPASE 114.3 U/L (23-300); POTASSIUM 4.3 mmol/L (3.6-5.0); SODIUM 145.2 mmol/L (137-145); TOTAL PROTEIN 7.1 g/dL (6.3-8.2)
--- NOTE | 2017-03-09 12:53 | ER Document Report ---
ED GI/ - General Chief Complaint: Abdominal Pain Stated Complaint: ABDOMINAL PAIN Time seen by provider: 12:47 Mode of Arrival: Ambulatory Information source: Patient Notes: 26-year-old female presents to ED for right upper quadrant abdominal pain for the last 3 days with nausea and vomiting. She denies diarrhea states that the last 2 weeks yesterday. She's got right flank pain. She has had a cholecystectomy 2 C-sections. Her last was 2 months ago. She was seen in the emergency room yesterday for similar symptoms and sent home with Phenergan for nausea and vomiting. She states that her right upper quadrant flank pain has worsened today and she cannot stand the pain anymore she cannot keep missing work. She denies any urinary symptoms or fever. TRAVEL OUTSIDE OF THE [place] IN LAST 30 DAYS: No - HPI Patient complains to provider of: Abdominal pain - Right upper quadrant, Flank pain. No: Vomiting Onset: Other - 3 days ago Timing/Duration: Gradual, Intermittent Quality of pain: Cramping, Sharp Severity at maximum: Severe Severity in ED: Severe Pain Level: 5 Location: RUQ, Right flank LMP: childbirth 2 months ago Associated symptoms: Nausea Exacerbated by: Movement, Walking, Food Relieved by: Denies Similar symptoms previously: Yes Recently seen / treated by doctor: Yes - Related Data Allergies/Adverse Reactions: buspirone HCl [From BuSpar] Allergy (Mild, Verified 03/08/17 13:03) codeine Allergy (Mild, Verified 03/08/17 13:03) latex Allergy (Mild, Verified 03/08/17 13:03) Past Medical History - General Information source: Patient - Social History Smoking Status: Current Every Day Smoker Cigarette use (# per day): Yes - couple cigarettes a Chew tobacco use (# tins/day): No Smoking Education Provided: Yes - less than 2 minutes Frequency of alcohol use: None Drug Abuse: None Occupation: call center Lives with: Family Family History: Arthritis, DM, Hypertension, Malignancy Patient has suicidal ideation: No Patient has homicidal ideation: No - Past Medical History Cardiac Medical History: Reports: None Pulmonary Medical History: Reports: Hx Bronchitis EENT Medical History: Reports: None Neurological Medical History: Reports: None Endocrine Medical History: Reports: Hx Diabetes Mellitus Type 2 Renal/ Medical History: Reports: None Malignancy Medical History: Reports: None GI Medical History: Reports: None Musculoskeltal Medical History: Reports None Skin Medical History: Reports None Psychiatric Medical History: Reports: Hx Anxiety, Hx Depression Traumatic Medical History: Reports: None Infectious Medical History: Reports: None Past Surgical History: Reports: Hx Section, Hx Cholecystectomy, Hx Oral Surgery - wisdom teeth - Immunizations Immunizations up to date: No Hx Diphtheria, Pertussis, Tetanus Vaccination: No Review of Systems - Review of Systems Constitutional: No symptoms reported EENT: No symptoms reported Cardiovascular: No symptoms reported Respiratory: No symptoms reported Gastrointestinal: Abdominal pain - Right upper quadrant, Nausea Genitourinary: No symptoms reported Female Genitourinary: No symptoms reported Musculoskeletal: No symptoms reported Skin: No symptoms reported Hematologic/Lymphatic: No symptoms reported Neurological/Psychological: No symptoms reported -: Yes All other systems reviewed and negative Physical Exam - Vital signs Vitals: Temp Pulse Resp BP Pulse Ox 98.3 F 86 20 149/102 H 99 03/09/17 10:48 03/09/17 10:48 03/09/17 10:48 03/09/17 10:48 03/09/17 10:48 Interpretation: Normal - General General appearance: Appears well, Alert - HEENT Head: Normocephalic, Atraumatic Eyes: Normal Pupils: PERRL - Respiratory Respiratory status: No respiratory distress Chest status: Nontender Breath sounds: Normal Chest palpation: Normal - Cardiovascular Rhythm: Regular Heart sounds: Normal auscultation Murmur: No - Abdominal Inspection: Normal Distension: No distension Bowel sounds: Normal Tenderness: Tender - Right upper quadrant has had a cholecystectomy Organomegaly: No organomegaly - Back Back: Normal, Nontender - Extremities General upper extremity: Normal inspection, Nontender, Normal color, Normal ROM , Normal temperature General lower extremity: Normal inspection, Nontender, Normal color, Normal ROM , Normal temperature, Normal weight bearing. No: Lashay's sign - Neurological Neuro grossly intact: Yes Cognition: Normal Orientation: AAOx4 Blayne Coma Scale Eye Opening: Spontaneous [place] Coma Scale Verbal: Oriented [place] Coma Scale Motor: Obeys Commands [place] Coma Scale Total: 15 Speech: Normal Motor strength normal: LUE, RUE, LLE, RLE Sensory: Normal - Psychological Associated symptoms: Normal affect, Normal mood - Skin Skin Temperature: Warm Skin Moisture: Dry Skin Color: Normal Course - Re-evaluation Re-evalutation: 03/09/17 17:05 Discussed patient's assessment and labs with Dr. Howard he stated that she get a CT abdomen and pelvis with IV and oral contrast which was completed. CT abdomen pelvis is negative. Discussed results with Dr. Howard and then with the patient and family. We'll discharge patient home with recommendation to follow-up with a program development specialist. - Vital Signs Vital signs: Temp Pulse Resp BP Pulse Ox 98.3 F 86 20 149/102 H 99 03/09/17 10:48 03/09/17 10:48 03/09/17 10:48 03/09/17 10:48 03/09/17 10:48 - Laboratory Result Diagrams: 03/09/17 12:17 03/09/17 12:17 Laboratory results interpreted by me: 03/09/17 03/09/17 03/09/17 12:17 12:17 12:25 RDW 14.5 H Sodium 145.2 H Chloride 108 H Ur Leukocyte Esterase MODERATE H - Diagnostic Test Radiology reviewed: Image reviewed, Reports reviewed Discharge - Discharge Clinical Impression: Abdominal pain Qualifiers: Abdominal location: right upper quadrant Qualified Code(s): R10.11 - Right upper quadrant pain Nausea and vomiting Qualifiers: Vomiting type: unspecified Vomiting Intractability: non-intractable Qualified Code(s): R11.2 - Nausea with vomiting, unspecified Condition: Stable Disposition: HOME, SELF-CARE Instructions: Family Physicians / Practices Additional Instructions: ABDOMINAL PAIN: There are many causes of abdominal pain. Pain can mean a serious problem requiring surgery (such as appendicitis). It can also be an innocent problem that goes away on its own (such as a viral infection). Often, time must pass to determine the cause of pain. The physician does not feel that hospitalization is necessary, at present. Things may change within the next 24 hours. Call the doctor or come back for re- examination if any problems occur, such as: (1) Pain that becomes more severe, steady, or becomes concentrated in one specific area. Also, pain that is more severe with movement or coughing. (2) Vomiting that persists or becomes more frequent. (3) Blood in the vomitus, urine, or bowel movements. Blood in the stool may have a tarry or black appearance. (4) Shaking chills or fever greater than 100 degrees F. (5) The abdomen becomes more distended or swollen. (6) Bowel movements cease. (7) Failure to improve as expected. NORMAL EXAM AND WORKUP: At this time, your examination and workup show no significant abnormality. No significant abnormal physical findings are noted. All laboratory, EKG, and imaging (x-ray, CT scans, ultrasound) studies that were ordered show no significant abnormality. Although your examination and all studies that were ordered showed no significant abnormal finding, there are no examinations and no studies that are 100% accurate. There is always the possibility that some abnormality could exist and not be detected with physical examination or within the limits and capabilities of laboratory and other studies. You should return or follow up as you were instructed on your visit today for further evaluation if your symptoms do not resolve. VOMITING: Vomiting (or nausea without vomiting) can be caused by many other different problems. It can mean that something's wrong with the stomach, such as ulcers or inflammation or the intestinal tract, such as appendicitis. But it can also be a symptom of a problem that has nothing to do with the stomach or intestines. Vomiting is common with severe headaches, earaches, tonsillitis, and kidney infections, etc. We see it with pneumonia or heart attacks. Drugs can cause nausea and vomiting. Many abdominal problems cause vomiting; for example, gallstones, kidney stones, pancreatitis, and intestinal obstruction ( blocked bowels). In most cases, curing the vomiting depends on fixing the problem that caused it. For temporary relief, we may use an anti-nausea medicine. For home use, we can prescribe suppositories, chewable pills, pills that dissolve in the mouth, or liquid anti-nausea drugs. If the vomiting seems to be caused by a problem in the stomach, acid-suppressing drugs may be prescribed as well. It's important to avoid dehydration. Sip small amounts of clear liquids ( soft drinks, tea, broth, etc) . Try to take fluids frequently even if you are vomiting to prevent dehydration. Take increasing amounts of fluid and when liquids are being consumed successfully, advance to small amounts of bland food (toast, soups, mashed potatoes, etc.) until you are able to resume a regular diet. Avoid aspirin, tobacco, and alcohol. If the vomiting worsens, if the problem that's making you vomit worsens, or if there's evidence of bleeding in the stomach (such as black, tarry stool, or bloody or black vomit), you should return immediately. Also, return if abdominal pain worsens or becomes localized to one area or you develop high fever. Call your doctor if you aren't improved in 24 hours. INTRAVENOUS (I V) FLUIDS: As part of your care today, you received intravenous (IV) fluids. IV fluids are administered to patients who are dehydrated or to those who have certain chemical (electrolyte) abnormalities that need correcting. ANTINAUSEA MEDICATION: You have been given a medication to suppress nausea and vomiting. This type of medication can be given as a shot, pill, or suppository. It will usually last for many hours. Pills and shots usually last six to eight hours. For the typical illness, only one or two doses of the medication may be necessary. Mild lightheadedness may occur. This type of medicine can cause drowsiness. Do not drive or operate dangerous machinery while under its influence. Do not mix with alcohol. See your doctor at once if you have muscle spasms or tightness, or uncontrollable motions (particularly of the neck, mouth, or jaw). Persistent vomiting or severe lightheadedness should also be evaluated by the physician. Toradol Injection You have been given an injection of ketorolac tromethamine (Toradol). This is an excellent, safe drug for pain control. It also has potent antiinflammatory action. You should have significant pain relief within about one hour. Toradol is not addicting and is non-sedating. It does not interfere with driving or work. Call or return if you develop itching, hives, shortness of breath, or rash. Acetaminophen Acetaminophen may be taken for pain relief or fever control. It's much safer than aspirin, offering a wider range of "safe" dosages. It is safe during . Some brand names are Tylenol, Panadol, Datril, Anacin 3, Tempra, and Liquiprin. Acetaminophen can be repeated every four hours. The following are maximum recommended dosages: WEIGHT Dose Drops Elixir Chewable( 80mg) (LBS.) drprs=droppers tsp=teaspoon 6 40 mg .4 ml (1/2) 6-11 80 mg .8 ml (full) 1/2 tsp 1 tab 12-16 120 mg 1 1/2 drprs 3/4 tsp 1 1/2 tabs 17-23 160 mg 2 drprs 1 tsp 2 tabs 24-30 240 mg 3 drprs 1 1/2 tsp 3 tabs 30-35 320 mg 2 tsp 4 tabs 36-41 360 mg 2 1/4 tsp 4 1 /2 tabs 42-47 400 mg 2 1/2 tsp 5 tabs 48-53 480 mg 3 tsp 6 tabs 54-59 520 mg 3 1/4 tsp 6 1 /2 tabs 60-64 560 mg 3 1/2 tsp 7 tabs 65-70 600 mg 3 3/4 tsp 7 1 /2 tabs 71-76 640 mg 4 tsp 8 tabs 77-82 720 mg 4 1/2 tsp 9 tabs 83-88 800 mg 5 tsp 10 tabs >89 pounds or adults 650 mg to 900 mg Acetaminophen can be repeated every four hours. Maximum daily dose not to exceed 4000 mg. These maximum recommended dosages are slightly higher than the dosages written on the product container, but these dosages are very safe and well below the toxic dosage for acetaminophen. FOLLOW-UP CARE: If you have been referred to a physician for follow-up care, call the physician s office for an appointment as you were instructed or within the next two days. If you experience worsening or a significant change in your symptoms, notify the physician immediately or return to the Emergency Department at any time for re-evaluation. Prescriptions: Cyclobenzaprine HCl [Flexeril 10 mg Tablet] 10 mg PO TIDP PRN #15 tab PRN Reason: Ondansetron [Zofran Odt 4 mg Tablet] 1 tab PO Q6H #15 tab.rapdis Forms: Elevated Blood Pressure, Smoking Cessation Education, Return to Work
[2017-03-09] MEDS ORDERED: PROMETHAZINE HCL 25 MG TABLET PO ONE (12:57)
[2017-03-09] MEDS ORDERED: NORMAL SALINE 1000 ML 1,000 ML IV ONE (12:58)
[2017-03-09] MEDS ORDERED: ACETAMINOPHEN 325 MG SUPP.RECT PR ONE (14:36)
[2017-03-09] MEDS ORDERED: KETOROLAC TROMETHAMINE INJ/PF 30 MG/1 ML SDV IV ONE (16:03)
--- NOTE | 2017-03-09 17:10 | ER Document Report ---
Doctor's Note Notes: 03/09/17 17:09 Patient and family seen and examined by myself. Patient reports right upper quadrant pain for 2 days but denies any vomiting or diarrhea. Denies hematemesis hematochezia or melena dysuria fevers or chills. Reports her gallbladder already removed. On exam abdomen soft and moderately tender along the right costal margin laterally and just inferior to this. No lesions are noted this area. No true Ghosh sign is present. Abdomen is otherwise soft nontender nondistended no guarding rebound rigidity no referred pain
== END 2017-03-09 17:47 | disposition home or self-care (01) ==
LOC: ER 10:46
DX: R10.11 Right upper quadrant pain (principal); R10.9 Unspecified abdominal pain; R11.2 Nausea with vomiting, unspecified; F17.210 Nicotine dependence, cigarettes, uncomplicated
CPT/HCPCS: 99284; 96361; 96374; 36415; 87086; 83690; 85025; 80053; 81001; 74177; J3490 ×2; J1885; J7030

== ENCOUNTER → 2017-05-19 | Outpatient (CLI) | payer MEDICAID ==
--- NOTE | 2017-05-19 13:59 | RADIOLOGY REPORT (SQ) ---
EXAM DESCRIPTION: HAND RIGHT 3 VIEWS COMPLETED DATE/TIME: 05/19/2017 1:36 pm REASON FOR STUDY: UNSP INJURY OF RIGHT WRIST, HAND AND FINGER(S), INIT ENCNTR S69.91XA UNSP INJURY OF RIGHT WRIST, HAND AND FINGER(S), INI COMPARISON: None. EXAM PARAMETERS: NUMBER OF VIEWS: Three views. TECHNIQUE: AP, lateral and oblique radiographic images acquired of the right hand. LIMITATIONS: None. FINDINGS: MINERALIZATION: Normal. BONES: No acute fracture or dislocation. No worrisome bone lesions. JOINTS: No effusions. SOFT TISSUES: No soft tissue swelling. No foreign body. OTHER: No other significant finding. IMPRESSION: NEGATIVE STUDY OF THE RIGHT HAND. NO RADIOGRAPHIC EVIDENCE OF ACUTE INJURY. TECHNICAL DOCUMENTATION: JOB ID: [id number] [employer]- All Rights Reserved
== END ==
LOC: OD 13:24
PROVIDERS: ATTEND Nurse Practitioner Acute Care
DX: S69.91XA Unspecified injury of right wrist, hand and finger(s), initial encounter (principal); X58.XXXA Exposure to other specified factors, initial encounter

== ENCOUNTER → 2017-10-06 | Outpatient (CLI) | payer MEDICAID ==
--- NOTE | 2017-10-06 12:34 | RADIOLOGY REPORT (SQ) ---
EXAM DESCRIPTION: LUMBAR SPINE COMPLETE COMPLETED DATE/TIME: 10/06/2017 11:19 am REASON FOR STUDY: LOW BACK PAIN M54.5 LOW BACK PAIN COMPARISON: None. NUMBER OF VIEWS: Five views including obliques. TECHNIQUE: AP, lateral, oblique, and sacral radiographic images acquired of the lumbar spine. LIMITATIONS: None. FINDINGS: MINERALIZATION: Normal. SEGMENTATION: Normal. No transitional anatomy. ALIGNMENT: Normal. VERTEBRAE: Maintained height. No fracture or worrisome bone lesion. DISCS: Preserved height. No significant osteophytes or end plate irregularity. POSTERIOR ELEMENTS: Pedicles and facets are intact. No pars defect or posterior arch defects. HARDWARE: None in the spine. PARASPINAL SOFT TISSUES: Normal. PELVIS: Intact as visualized. No fractures or worrisome bone lesions. SI joints intact. OTHER: No other significant finding. IMPRESSION: NORMAL 5 VIEW LUMBAR SPINE. TECHNICAL DOCUMENTATION: JOB ID: [id number] [employer]- All Rights Reserved
== END ==
LOC: OD 10:56
PROVIDERS: ATTEND Physician Assistant
DX: M54.5 Low back pain (principal)
CPT/HCPCS: 72110

== ENCOUNTER 2018-01-19 14:42 | Emergency (ER) | payer BC, MEDICAID ==
[2018-01-19 14:48] VITALS: BP 140/93
--- NOTE | 2018-01-19 15:09 | ER Document Report ---
ED Oral Problem - General Chief Complaint: Jaw Pain Stated Complaint: JAW PAIN Time Seen by Provider: 01/19/18 15:04 Mode of Arrival: Ambulatory Information source: Patient Notes: Patient is a 27-year-old female who presents to the ER today for right jaw pain 2 weeks. Patient states that it hurts constantly, not just whenever she moves her mouth but that makes it hurt worse when she opens or closes her mouth or chews gum. Patient denies any tooth pain that she knows of, sinus pressure, runny nose, fever, chills, cough. Patient denies any injury. She denies any swelling or drainage. TRAVEL OUTSIDE OF THE [place] IN LAST 30 DAYS: No - Related Data Allergies/Adverse Reactions: buspirone HCl [From BuSpar] Allergy (Mild, Verified 01/19/18 14:45) codeine Allergy (Mild, Verified 01/19/18 14:45) latex Allergy (Mild, Verified 01/19/18 14:45) Past Medical History - General Information source: Patient - Social History Smoking Status: Never Smoker Family History: Arthritis, DM, Hypertension, Malignancy Pulmonary Medical History: Reports: Hx Bronchitis Endocrine Medical History: Reports: Hx Diabetes Mellitus Type 2 Renal/ Medical History: Denies: Hx Peritoneal Dialysis Psychiatric Medical History: Reports: Hx Anxiety, Hx Depression Past Surgical History: Reports: Hx Section, Hx Cholecystectomy, Hx Oral Surgery - wisdom teeth - Immunizations Immunizations up to date: No Hx Diphtheria, Pertussis, Tetanus Vaccination: No Review of Systems - Review of Systems Constitutional: No symptoms reported EENT: See HPI Cardiovascular: No symptoms reported Respiratory: No symptoms reported Gastrointestinal: No symptoms reported Genitourinary: No symptoms reported Female Genitourinary: No symptoms reported Musculoskeletal: No symptoms reported Skin: No symptoms reported Hematologic/Lymphatic: No symptoms reported Neurological/Psychological: No symptoms reported Physical Exam - Vital signs Vitals: Temp Pulse Resp BP Pulse Ox 98.4 F 96 20 140/93 H 99 01/19/18 14:47 01/19/18 14:47 01/19/18 14:47 01/19/18 14:47 01/19/18 14:47 - Notes Notes: PHYSICAL EXAMINATION: GENERAL: Well-appearing and in no acute distress. HEAD: Atraumatic, normocephalic. EYES: Pupils equal round and reactive to light, extraocular movements intact, sclera anicteric, conjunctiva are normal. ENT: ear canals without erythema or foreign body, TMs pearly dela cruz with good bony landmarks, nares patent, oropharynx clear without exudates. Moist mucous membranes. NECK: Normal range of motion, supple without lymphadenopathy LUNGS: CTAB and equal. No wheezes rales or rhonchi. HEART: Regular rate and rhythm without murmurs ABDOMEN: Soft, no tenderness. No guarding, no rebound BACK: no vertebral tenderness, normal ROM GI/: no CVA tenderness EXTREMITIES: Normal range of motion, no pitting edema. No cyanosis. NEUROLOGICAL: Cranial nerves grossly intact. Normal sensory/motor exams. PSYCH: Normal mood, normal affect. SKIN: Warm, Dry, normal turgor, no rashes or lesions noted Course - Vital Signs Vital signs: Temp Pulse Resp BP Pulse Ox 98.4 F 96 20 140/93 H 99 01/19/18 14:47 01/19/18 14:47 01/19/18 14:47 01/19/18 14:47 01/19/18 14:47 Discharge - Discharge Clinical Impression: Jaw pain, non-TMJ Condition: Stable Disposition: HOME, SELF-CARE Additional Instructions: Do not chew any gum. Return immediately for any new or worsening symptoms. Follow up with primary care provider, call tomorrow to make followup appointment. Prescriptions: Amoxicillin 500 mg PO BID #20 capsule Tramadol HCl 50 mg PO TID PRN #15 tablet PRN Reason: Forms: Return to Work
--- NOTE | 2018-01-19 16:07 | RADIOLOGY REPORT (SQ) ---
EXAM DESCRIPTION: TMJ COMPLETED DATE/TIME: 01/19/2018 3:56 pm REASON FOR STUDY: right TMJ pain COMPARISON: None. TECHNIQUE: Plain radiographs of the temporomandibular joints were performed with Garcia's view, obliq ue right open and closed mouth images, oblique left open and closed mouth images LIMITATIONS: None. FINDINGS: Normal bone density. No fracture. No malalignment. The open mouth and closed mouth views demonstrate normal excursion of the bony mandibular condyles ov er the condylar eminences bilaterally. IMPRESSION: Unremarkable plain films of the bilateral temporomandibular joints TECHNICAL DOCUMENTATION: JOB ID: [id number] [employer]- All Rights Reserved Reading location - IP/workstation name: [email or web address]
== END 2018-01-19 16:24 | disposition home or self-care (01) ==
LOC: ER 14:42
DX: R68.84 Jaw pain (principal)
CPT/HCPCS: 70330; 99283

== ENCOUNTER 2018-07-04 17:37 | Emergency (ER) | payer BC, MEDICAID ==
[2018-07-04 17:47] VITALS: BP 132/97
[2018-07-04] MEDS ORDERED: LIDOCAINE 1% INJ-PF (10 MG/ML) 30 ML SDV INJ ONE (18:30)
--- NOTE | 2018-07-04 18:36 | ER Document Report ---
ED General - General Chief Complaint: Abscess Stated Complaint: POSSIBLE ABSCESS Time Seen by Provider: 07/04/18 17:52 Notes: Patient presents with 3-4 days of worsening pain and redness to the inguinal region on the left side of her lower extremity. Patient concern of abscess. Denies any history of diabetes. No fevers or chills. TRAVEL OUTSIDE OF THE [place] IN LAST 30 DAYS: No - Related Data Allergies/Adverse Reactions: buspirone HCl [From BuSpar] Allergy (Mild, Verified 07/04/18 17:38) codeine Allergy (Mild, Verified 07/04/18 17:38) latex Allergy (Mild, Verified 07/04/18 17:38) tramadol Adverse Reaction (Verified 07/04/18 17:38) Hives Past Medical History - Social History Smoking Status: Unknown if Ever Smoked Family History: Arthritis, DM, Hypertension, Malignancy Patient has suicidal ideation: No Patient has homicidal ideation: No Pulmonary Medical History: Reports: Hx Bronchitis Endocrine Medical History: Reports: Hx Diabetes Mellitus Type 2 Renal/ Medical History: Denies: Hx Peritoneal Dialysis Psychiatric Medical History: Reports: Hx Anxiety, Hx Depression Past Surgical History: Reports: Hx Section, Hx Cholecystectomy, Hx Oral Surgery - wisdom teeth - Immunizations Immunizations up to date: No Hx Diphtheria, Pertussis, Tetanus Vaccination: No Review of Systems - Review of Systems Constitutional: No symptoms reported EENT: No symptoms reported Cardiovascular: No symptoms reported Respiratory: No symptoms reported Gastrointestinal: No symptoms reported Genitourinary: No symptoms reported Female Genitourinary: No symptoms reported Musculoskeletal: No symptoms reported Skin: See HPI Hematologic/Lymphatic: No symptoms reported Neurological/Psychological: No symptoms reported Physical Exam - Vital signs Vitals: Temp Pulse Resp BP Pulse Ox 98.1 F 118 H 20 132/97 H 99 07/04/18 17:44 07/04/18 17:44 07/04/18 17:44 07/04/18 17:44 07/04/18 17:44 - General General appearance: Appears well, Alert - HEENT Head: Normocephalic, Atraumatic - Respiratory Respiratory status: No respiratory distress Chest status: Nontender - Cardiovascular Rhythm: Regular Heart sounds: Normal auscultation Murmur: No - Skin Skin Temperature: Warm - Approximately 2 x 3 cm erythematous region mid inguinal region left side of patient's lower extremity. Ultrasound at bedside reveals hypoechoic region consistent with abscess Course - Re-evaluation Re-evalutation: 07/04/18 19:04 Incision generator is performed with no complications. Will place patient on 5 days of Bactrim. Return precautions provided., Of note, patient found to be mildly tachycardic she has a history of tachycardia and is currently on propanolol for this. Do not feel patient is septic or no signs of systemic infection. - Vital Signs Vital signs: Temp Pulse Resp BP Pulse Ox 98.1 F 118 H 20 132/97 H 99 07/04/18 17:44 07/04/18 17:44 07/04/18 17:44 07/04/18 17:44 07/04/18 17:44 Procedures - Incision and Drainage Left Groin Type: Simple Anesthetic type: 1% Lidocaine mL's of anesthetic: 8 Blade size: 11 I&D procedure: Betadine prep applied Incision Method: Incision made by scalpel Amount/type of drainage: 5cc/blood and purulence Notes: 07/04/18 19:03 20 cc normal saline irrigation of wound patient tolerated well dressing placed by nursing staff Discharge - Discharge Clinical Impression: Abscess Disposition: HOME, SELF-CARE Instructions: Abscess ([facility]), Post Incision and Drainage, Trimethoprim-Sulfa ( [facility]) Prescriptions: Sulfamethoxazole/Trimethoprim [Bactrim Ds Tablet] 1 each PO BID 5 Days #10 tablet Referrals: JERAD OSBORNE FNP [Primary Care Provider] - Follow up as needed
== END 2018-07-04 19:14 | disposition home or self-care (01) ==
LOC: ER 17:37
DX: L02.91 Cutaneous abscess, unspecified (principal); R00.0 Tachycardia, unspecified; Z79.899 Other long term (current) drug therapy; Z88.8 Allergy status to other drugs, medicaments and biological substances; Z88.5 Allergy status to narcotic agent; Z91.040 Latex allergy status
CPT/HCPCS: 99284; 10060; J3490

== ENCOUNTER → 2020-10-06 | Outpatient (CLI) | payer MEDICAID ==
--- NOTE | 2020-10-06 08:47 | WOMENS IMAGING REPORT ---
EXAM DESCRIPTION: U/S BREAST UNILATERAL, COMPL IMAGES COMPLETED DATE/TIME: 10/06/2020 7:35 am REASON FOR STUDY: R22.32 LOCALIZED SWELLING, MASS AND LUMP, LEFT UPPER LIMB R22.32 LOCALIZED SWELLI NG, MASS AND LUMP, LEFT UPPER LIMB COMPARISON: None. TECHNIQUE: Real-time and static grayscale imaging performed of the left breast targeted to the area of clinical/mammographic concern. Selected color Doppler images recorded. LIMITATIONS: None. FINDINGS: In the axilla, there is a palpable 17 x 3 x 11 mm superficial hypoechoic nonvascular derma tologic lesion. No suspicious findings in the axilla or breast. IMPRESSION: No suspicious findings detected by ultrasound. BIRAD: 2 Benign findings. RECOMMENDATION: RECOMMENDED FOLLOW-UP: Clinical follow-up of any palpable abnormality. COMMENT: The [employer] ([employer]) has developed recommendations for screening MRI of the breasts in certain patient populations, to be used in conjunction with mammography. Breast MRI s urveillance may be appropriate for women with more than 20% lifetime risk of developing breast cancer as determined by genetic testing, significant family history of the disease, or history of mantle r adiation for Hodgkins Disease. [employer] Practice Guidelines 2008. TECHNICAL DOCUMENTATION: JOB ID: [id number] [employer]- All Rights Reserved Reading location - IP/workstation name: [email or web address]
== END ==
LOC: WI 07:10
PROVIDERS: ATTEND Nurse Practitioner Family
DX: R22.32 Localized swelling, mass and lump, left upper limb (principal)
CPT/HCPCS: 76641